=== PATIENT | female | born 1950 | race Caucasian/White ===

== ENCOUNTER 2016-11-14 14:05 | Inpatient (IN) | payer MEDICARE, OTHER ==
[2016-11-14] MEDS ORDERED: SODIUM CHLORIDE 0.9% 1,000 ML IV ONE ×2 (14:40)
[2016-11-14 15:06] LABS: INR 1.1 (<1.1); Prothrombin Time 10.9 sec (9.0-12.0)
[2016-11-14 15:07] LABS: Basophils % (A) 0 %; CH 26.4; CHCM 31.3; Eosinophils % (A) 0 %; HCT 42.7 % (34.0-46.0); HGB 13.3 gm/dL (11.4-16.0); Hypochromasia Slight; Luc # (Auto) 0.08; Luc % (Auto) 1; Lymphocytes # (A) 1.2 k/uL (1.0-4.8); Lymphocytes % (A) 10 %; MCH 26.3 pg (25.0-35.0); MCV 84.7 fL (80.0-100.0); Mean Platelet Volume 7.2; Monocytes # (A) 0.3 k/uL (0-1.0); Monocytes % (A) 3 %; Neutrophils # (A) 9.9 k/uL (1.3-7.7); Neutrophils % (A) 87 %; RBC 5.04 m/uL (3.80-5.40); RDW 14.5 % (11.5-15.5); WBC 11.5 k/uL (3.8-10.6); WBC (Perox) 10.89
[2016-11-14 15:10] LABS: ALT 24 U/L (9-52); AST 16 U/L (14-36); Alkaline Phosphatase 80 U/L (38-126); Anion Gap 22 mmol/L; Blood Urea Nitrogen 34 mg/dL (7-17); Calcium 11.3 mg/dL (8.4-10.2); Carbon Dioxide 22 mmol/L (22-30); Chloride 106 mmol/L (98-107); Glucose 388 mg/dL (74-99); Non-African American GFR(MDRD) >60 (>60 ml/min/1.73 sqM); Potassium 4.6 mmol/L (3.5-5.1); Sodium 150 mmol/L (137-145); Total Bilirubin 0.7 mg/dL (0.2-1.3); Total Protein 8.5 g/dL (6.3-8.2)
[2016-11-14 15:12] LABS: Partial Thromboplastin Time 22.2 sec (22.0-30.0)
--- NOTE | 2016-11-14 15:33 | ED ---
General Adult HPI - General Chief complaint: Altered Mental Status Stated complaint: POSS UTI Time Seen by Provider: 11/14/16 14:40 Source: EMS, RN notes reviewed, old records reviewed Mode of arrival: EMS - History of Present Illness Initial comments: This is a 58-year-old female the ER for evaluation. Patient's brought in from a psychiatric facility, recently hospital for evaluation of altered mental status. Patient's over some long-term multiple sclerosis. Patient herself is unable to give a clear history secondary critical condition, history is obtained from EMS as well as the patient's chart - Related Data Home Medications Medication Instructions Recorded Confirmed Acetaminophen [Tylenol] 650 mg PO Q4H PRN 08/05/14 11/14/16 Amitriptyline HCl 25 mg PO HS@209908/05/14 11/14/16 Docusate Sodium [Dulcolax Stool 200 mg PO DAILY@89908/05/14 11/14/16 Softener] Dronabinol 10 mg PO BID@899,209908/05/14 11/14/16 Ergocalciferol [Vitamin D2 50,000 unit PO SA 08/05/14 11/14/16 (DRISDOL)] Escitalopram [Lexapro] 20 mg PO DAILY@89908/05/14 11/14/16 Insulin Glargine [Lantus] 30 unit SQ DAILY@89908/05/14 11/14/16 Levothyroxine Sodium [Synthroid] 75 mcg PO DAILY@59908/05/14 11/14/16 Lisinopril [Prinivil] 20 mg PO DAILY@89908/05/14 11/14/16 Melatonin 3 mg PO HS PRN 08/05/14 11/14/16 Methenamine Hippurate 1 gm PO BID@0900,209908/05/14 11/14/16 Omeprazole [PriLOSEC] 20 mg PO DAILY@59908/05/14 11/14/16 Polyethylene Glycol 3350 [Miralax] 17 gm PO BID@0900,209908/05/14 11/14/16 Sennosides [Senokot] 17.2 mg PO DAILY@89908/05/14 11/14/16 Artificial Tears-Hypromellose 1 drop BOTH EYES BID PRN 03/25/16 11/14/16 [Artificial Tear Drops] Atorvastatin [Lipitor] 20 mg PO HS@209903/25/16 11/14/16 Bisacodyl 10 mg RECTAL DAILY PRN 03/25/16 11/14/16 Calcium Carbonate [Calcium] 600 mg PO BID@0900,2100 03/25/16 11/14/16 Fenofibrate Nanocrystallized 160 mg PO HS@209903/25/16 11/14/16 [Tricor] Glucagen Hypokit Solution 1 mg IM Q10M PRN 03/25/16 11/14/16 Inzo Barrier Cream 1 applic TOPICAL BID 03/25/16 11/14/16 Magnesium Citrate [Citrate of 300 ml PO Q72H PRN 03/25/16 11/14/16 Magnesia] Naloxegol Oxalate [Movantik] 25 mg PO HS@209903/25/16 11/14/16 Antifungal Powder 1 applic TOPICAL DAILY 11/14/16 11/14/16 Insulin Aspart [NovoLOG Flexpen] See Protocol SQ ACHS 11/14/16 11/14/16 amLODIPine [Norvasc] 5 mg PO DAILY@0900 11/14/16 11/14/16 Previous Rx's Medication Instructions Recorded Diazepam [Valium] 5 mg PO TID PRN #21 tab 03/31/16 fentaNYL 100MCG/HR PATCH 1 patch TRANSDERM Q72H #2 patch 03/31/16 [Duragesic 100MCG/HR] traMADol HCL [Ultram ER] 300 mg PO DAILY@0600 #7 tab.er.24h 03/31/16 Allergies Allergy/AdvReac Type Severity Reaction Status Date / Time No Known Allergies Allergy Verified 11/14/16 14:39 Review of Systems ROS Statement: Those systems with pertinent positive or pertinent negative responses have been documented in the HPI. ROS Other: All systems not noted in ROS Statement are negative. Past Medical History Past Medical History: COPD, CVA/TIA, Diabetes Mellitus, Hypertension, Memory Impairment Additional Past Medical History / Comment(s): UTI, multiple sclerosis, chronic constipation, abdominal distention History of Any Multi-Drug Resistant Organisms: ESBL Date of last positivie culture/infection: 03/25/16 MDRO Source:: Urine AND BLOOD-E.coli ESBL Past Surgical History: Adenoidectomy, Tonsillectomy Additional Past Surgical History / Comment(s): right leg ORIF, multiple scopes Past Psychological History: No Psychological Hx Reported Additional Psychological History / Comment(s): resident ECF, hx of ESBL Smoking Status: Former smoker Past Alcohol Use History: None Reported Past Drug Use History: None Reported - Past Family History Mother History Unknown: Yes Father History Unknown: Yes General Exam Limitations: altered mental status General appearance: alert, in distress Head exam: Present: atraumatic, normocephalic, normal inspection Eye exam: Present: normal appearance, PERRL, EOMI. Absent: scleral icterus, conjunctival injection, periorbital swelling ENT exam: Present: normal exam, mucous membranes moist Neck exam: Present: normal inspection. Absent: tenderness, meningismus, lymphadenopathy Respiratory exam: Present: normal lung sounds bilaterally. Absent: respiratory distress, wheezes, rales, rhonchi, stridor Cardiovascular Exam: Present: normal rhythm, tachycardia, normal heart sounds. Absent: systolic murmur, diastolic murmur, rubs, gallop, clicks GI/Abdominal exam: Present: soft, normal bowel sounds. Absent: distended, tenderness, guarding, rebound, rigid Extremities exam: Present: normal inspection, full ROM, normal capillary refill. Absent: tenderness, pedal edema, joint swelling, calf tenderness Back exam: Present: normal inspection Neurological exam: Present: alert, oriented X3, CN II-XII intact Psychiatric exam: Present: normal affect, normal mood Skin exam: Present: warm, dry, intact, normal color. Absent: rash Course Vital Signs 11/14/16 14:11 Temperature 98.6 F Pulse Rate 130 H Respiratory 18 Rate Blood Pressure 192/89 O2 Sat by Pulse 96 Oximetry - Reevaluation(s) Reevaluation #1: 11/14/16 16:42 She remains clinically same, and still unable to answer questions, persistently tachycardic EKG Findings - EKG Comments: EKG Findings:: EKG shows sinus tachycardia rate 127, MI 126, QRS I4, QTC 479 Medical Decision Making - Medical Decision Making 66 female the ER for evaluation of severe weakness. Patient unable to give history, this is per staff, this is found to have non-ST elevated MT, severe tachycardia. - Lab Data Result diagrams: 11/14/16 14:20 11/14/16 14:20 Lab Results 11/14/16 11/14/16 11/14/16 Range/Units 14:20 14:20 14:20 WBC 11.5 H (3.8-10.6) k/uL RBC 5.04 (3.80-5.40) m/uL Hgb 13.3 (11.4-16.0) gm/dL Hct 42.7 (34.0-46.0) % MCV 84.7 (80.0-100.0) fL MCH 26.3 (25.0-35.0) pg MCHC 31.0 (31.0-37.0) g/dL RDW 14.5 (11.5-15.5) % Plt Count 455 H (150-450) k/uL Neutrophils % 87 % Lymphocytes % 10 % Monocytes % 3 % Eosinophils % 0 % Basophils % 0 % Neutrophils # 9.9 H (1.3-7.7) k/uL Lymphocytes # 1.2 (1.0-4.8) k/uL Monocytes # 0.3 (0-1.0) k/uL Eosinophils # 0.0 (0-0.7) k/uL Basophils # 0.0 (0-0.2) k/uL Hypochromasia Slight PT (9.0-12.0) sec INR (<1.1) APTT (22.0-30.0) sec Sodium 150 H (137-145) mmol/L Potassium 4.6 (3.5-5.1) mmol/L Chloride 106 (98-107) mmol/L Carbon Dioxide 22 (22-30) mmol/L Anion Gap 22 mmol/L BUN 34 H (7-17) mg/dL Creatinine 0.90 (0.52-1.04) mg/dL Est GFR (MDRD) Af Amer >60 (>60 ml/min/1.73 sqM) Est GFR (MDRD) Non-Af >60 (>60 ml/min/1.73 sqM) Glucose 388 H (74-99) mg/dL Calcium 11.3 H (8.4-10.2) mg/dL Total Bilirubin 0.7 (0.2-1.3) mg/dL AST 16 (14-36) U/L ALT 24 (9-52) U/L Alkaline Phosphatase 80 (38-126) U/L Ammonia (<30) umol/L Total Creatine Kinase 38 (30-135) U/L CK-MB (CK-2) 2.7 H* (0.0-2.4) ng/mL CK-MB (CK-2) Rel Index 7.1 Troponin I 0.305 H* (0.000-0.034) ng/mL Total Protein 8.5 H (6.3-8.2) g/dL Albumin 4.8 (3.5-5.0) g/dL 11/14/16 11/14/16 Range/Units 14:20 14:20 WBC (3.8-10.6) k/uL RBC (3.80-5.40) m/uL Hgb (11.4-16.0) gm/dL Hct (34.0-46.0) % MCV (80.0-100.0) fL MCH (25.0-35.0) pg MCHC (31.0-37.0) g/dL RDW (11.5-15.5) % Plt Count (150-450) k/uL Neutrophils % % Lymphocytes % % Monocytes % % Eosinophils % % Basophils % % Neutrophils # (1.3-7.7) k/uL Lymphocytes # (1.0-4.8) k/uL Monocytes # (0-1.0) k/uL Eosinophils # (0-0.7) k/uL Basophils # (0-0.2) k/uL Hypochromasia PT 10.9 (9.0-12.0) sec INR 1.1 (<1.1) APTT 22.2 (22.0-30.0) sec Sodium (137-145) mmol/L Potassium (3.5-5.1) mmol/L Chloride (98-107) mmol/L Carbon Dioxide (22-30) mmol/L Anion Gap mmol/L BUN (7-17) mg/dL Creatinine (0.52-1.04) mg/dL Est GFR (MDRD) Af Amer (>60 ml/min/1.73 sqM) Est GFR (MDRD) Non-Af (>60 ml/min/1.73 sqM) Glucose (74-99) mg/dL Calcium (8.4-10.2) mg/dL Total Bilirubin (0.2-1.3) mg/dL AST (14-36) U/L ALT (9-52) U/L Alkaline Phosphatase (38-126) U/L Ammonia <9 (<30) umol/L Total Creatine Kinase (30-135) U/L CK-MB (CK-2) (0.0-2.4) ng/mL CK-MB (CK-2) Rel Index Troponin I (0.000-0.034) ng/mL Total Protein (6.3-8.2) g/dL Albumin (3.5-5.0) g/dL - Radiology Data Radiology results: report reviewed (Chest x-ray is negative for acute disease), image reviewed Critical Care Time Critical Care Time: Yes Total Critical Care Time: 31 Disposition Clinical Impression: Altered mental status, Multiple sclerosis, primary chronic progressive, NSTEMI (non-ST elevated myocardial infarction) Disposition: ADMITTED IP TO THIS [facility] Condition: Serious Referrals: Luis Munoz MD [Primary Care Provider] - 1-2 days
[2016-11-14 16:08] LABS: Creatine Kinase MB 2.7 ng/mL (0.0-2.4); Troponin I 0.305 ng/mL (0.000-0.034)
[2016-11-14] MEDS ORDERED: SODIUM CHLORIDE 0.9% 1,000 ML IV STA (16:31)
[2016-11-14] MEDS ORDERED: SODIUM CHLORIDE 0.9% 500 ML IV STA (16:31)
[2016-11-14] MEDS ORDERED: HEPARIN SODIUM,PORCINE 5,000 UNIT/ML 1 ML VIAL IV PRN (16:38)
[2016-11-14] MEDS ORDERED: NITROGLYCERIN SL TABS 0.4 MG TAB SUBLINGUAL PRN (16:38)
[2016-11-14] MEDS ORDERED: MORPHINE SULFATE 4 MG/ML SYRINGE IV PRN (16:38)
[2016-11-14] MEDS ORDERED: ASPIRIN 81 MG CHEW PO STA (16:38)
[2016-11-14] MEDS ORDERED: HEPARIN SODIUM,PORCINE 5,000 UNIT/ML 1 ML VIAL IV ONE (16:38)
[2016-11-14] MEDS ORDERED: LABETALOL 5 MG/ML VIAL MDV IVP STA (16:42)
--- NOTE | 2016-11-14 16:46 | XR ---
EXAMINATION TYPE: XR chest 1V portable DATE OF EXAM: 11/14/2016 4:40 PM COMPARISON: 03/28/2016 HISTORY: Altered mental status TECHNIQUE: Single frontal view of the chest is obtained. FINDINGS: There is no heart failure nor confluent pneumonic infiltrate. There are no hilar masses. C ostophrenic angles are clear. There are chest leads. Bony thorax is intact. IMPRESSION: No active cardiopulmonary disease. There is clearing of some atelectasis in both lungs c ompared to old exam.
[2016-11-14] MEDS ORDERED: RX INFO: IV CONTRAST WAS GIVEN 1 EACH MISC MISCELLANE PRN (16:50)
[2016-11-14] MEDS: HEPARIN SODIUM,PORCINE/D5W PMX 25,000 UNIT in DEXTROSE/WATER 1 500ML.BAG IV SCH (16:53)
[2016-11-14 17:31] LABS: Appearance,Urine Cloudy (Clear); Bacteria,Urine Rare /hpf; Bilirubin,Urine Negative (Negative); Glucose,Urine (UA) 4+ (Negative); Leukocyte Esterase,Urine Large (Negative); Mucus,Urine Rare /hpf; Nitrite,Urine Negative (Negative); PH, Urine 6.5 (5.0-8.0); Particle Count 16977; Protein,Urine 2+ (Negative); RBC,Urine 95 /hpf (0-5); Specific Gravity,Urine 1.017 (1.001-1.035); UA Billing (MACRO vs. MICRO) MICRO; Urobilinogen,Urine <2.0 mg/dL (<2.0); WBC,Urine 84 /hpf (0-5)
[2016-11-14 17:35] LABS: Ketones,Urine 2+ (Negative)
--- NOTE | 2016-11-14 18:27 | CT ---
EXAMINATION TYPE: CT angio chest DATE OF EXAM: 11/14/2016 6:14 PM COMPARISON: NONE HISTORY: Patient poor historian. Patient is dehydrated per family and shows increased signs of alter ed mental status. CT DLP: 591 mGycm Automated exposure control for dose reduction was used. CONTRAST: CTA scan of the thorax is performed with IV Contrast, patient injected with 100 mL of Omnipaque 350, pulmonary embolism protocol. There are 3-D post processed images.. FINDINGS: There is patchy atelectasis in both mid and lower lung [place] and worse on the right side. There is s light elevated right diaphragm. There is no pleural effusion. There is no evidence of thoracic aortic aneurysm or dissection. I see no filling defects in the pulmonary arteries. There is no mediastinal adenopathy. There are no hilar masses. There is no pericardial effusion. There is some thoracic kypho tic deformity. There is no evidence of a pulmonary mass. IMPRESSION: NO EVIDENCE OF PULMONARY EMBOLISM. THERE IS MILD BILATERAL PATCHY ATELECTASIS.
[2016-11-14 20:28] LABS: Glucose,Whole Blood 137 mg/dL (75-99)
[2016-11-14 21:42] LABS: Creatine Kinase MB 2.9 ng/mL (0.0-2.4); Troponin I 0.369 ng/mL (0.000-0.034)
[2016-11-14] MEDS: SODIUM CHLORIDE 0.9% 1,000 ML IV SCH (23:16)
[2016-11-14] MEDS: METOPROLOL TARTRATE 50 MG TAB PO SCH (23:41)
[2016-11-15 02:49] LABS: Mean Platelet Volume 6.7
[2016-11-15 03:03] LABS: Cholesterol 126 mg/dL (<200); HDL Cholesterol 51 mg/dL (40-60); Triglycerides 205 mg/dL (<150)
[2016-11-15 03:36] LABS: Creatine Kinase MB 2.9 ng/mL (0.0-2.4); Troponin I 0.244 ng/mL (0.000-0.034)
[2016-11-15] MEDS: SODIUM CHLORIDE 0.9% 1,000 ML IV SCH (06:54)
--- NOTE | 2016-11-15 08:58 | P.CRDCN ---
History of Present Illness Consult date: 11/15/16 History of present illness: This is a 66-year-old female who apparently was brought from a extended care facility because of altered mental status. She does have history of dementia and some some Issues. Also had a history of some sepsis in the past. Apparently she is diagnosed to have possible UTI. EKG showed sinus tachycardia on admission with nonspecific ST-T changes. Her cardiac enzymes showed a mildly elevated troponin but the pattern is not consistent with acute coronary injury. Patient total CPK was 54. The adductor the time of my examination patient is awake but unable to give any meaningful history. She doesn't seem to be in acute distress. She was claiming that she is feeling okay. Computed tomography scan of the chest did not reveal any pulmonary emboli Review of Systems As per the chart Past Medical History Past Medical History: COPD, CVA/TIA, Diabetes Mellitus, Hypertension, Memory Impairment Additional Past Medical History / Comment(s): UTI, multiple sclerosis, chronic constipation, abdominal distention History of Any Multi-Drug Resistant Organisms: ESBL Date of last positivie culture/infection: 03/25/16 MDRO Source:: Urine AND BLOOD-E.coli ESBL Past Surgical History: Adenoidectomy, Tonsillectomy Additional Past Surgical History / Comment(s): right leg ORIF, multiple scopes Past Psychological History: No Psychological Hx Reported Additional Psychological History / Comment(s): resident ECF, hx of ESBL Smoking Status: Former smoker Past Alcohol Use History: None Reported Past Drug Use History: None Reported - Past Family History Mother History Unknown: Yes Father History Unknown: Yes Medications and Allergies Home Medications Medication Instructions Recorded Confirmed Type Acetaminophen [Tylenol] 650 mg PO Q4H PRN 08/05/14 11/14/16 History Amitriptyline HCl 25 mg PO HS@209908/05/14 11/14/16 History Docusate Sodium [Dulcolax Stool 200 mg PO DAILY@0900 08/05/14 11/14/16 History Softener] Dronabinol 10 mg PO BID@0900,209908/05/14 11/14/16 History Ergocalciferol [Vitamin D2 50,000 unit PO SA 08/05/14 11/14/16 History (DRISDOL)] Escitalopram [Lexapro] 20 mg PO DAILY@0900 08/05/14 11/14/16 History Insulin Glargine [Lantus] 30 unit SQ DAILY@89908/05/14 11/14/16 History Levothyroxine Sodium [Synthroid] 75 mcg PO DAILY@0608/05/14 11/14/16 History Lisinopril [Prinivil] 20 mg PO DAILY@0900 08/05/14 11/14/16 History Melatonin 3 mg PO HS PRN 08/05/14 11/14/16 History Methenamine Hippurate 1 gm PO BID@0900,209908/05/14 11/14/16 History Omeprazole [PriLOSEC] 20 mg PO DAILY@59908/05/14 11/14/16 History Polyethylene Glycol 3350 [Miralax] 17 gm PO BID@0900,209908/05/14 11/14/16 History Sennosides [Senokot] 17.2 mg PO DAILY@0908/05/14 11/14/16 History Artificial Tears-Hypromellose 1 drop BOTH EYES BID PRN 03/25/16 11/14/16 History [Artificial Tear Drops] Atorvastatin [Lipitor] 20 mg PO HS@209903/25/16 11/14/16 History Bisacodyl 10 mg RECTAL DAILY PRN 03/25/16 11/14/16 History Calcium Carbonate [Calcium] 600 mg PO BID@0900,209903/25/16 11/14/16 History Fenofibrate Nanocrystallized 160 mg PO HS@209903/25/16 11/14/16 History [Tricor] Glucagen Hypokit Solution 1 mg IM Q10M PRN 03/25/16 11/14/16 History Inzo Barrier Cream 1 applic TOPICAL BID 03/25/16 11/14/16 History Magnesium Citrate [Citrate of 300 ml PO Q72H PRN 03/25/16 11/14/16 History Magnesia] Naloxegol Oxalate [Movantik] 25 mg PO HS@209903/25/16 11/14/16 History Antifungal Powder 1 applic TOPICAL DAILY 11/14/16 11/14/16 History Insulin Aspart [NovoLOG Flexpen] See Protocol SQ ACHS 11/14/16 11/14/16 History amLODIPine [Norvasc] 5 mg PO DAILY@0911/14/16 11/14/16 History Allergies Allergy/AdvReac Type Severity Reaction Status Date / Time No Known Allergies Allergy Verified 11/14/16 14:39 Physical Exam Vitals: Vital Signs Temp Pulse Resp BP Pulse Ox 11/15/16 06:47 73 16 176/92 98 11/15/16 04:28 69 16 177/82 97 11/15/16 01:38 96 16 169/75 97 11/15/16 00:20 98 16 165/79 97 11/14/16 23:10 92 16 180/86 97 11/14/16 19:36 89 16 160/73 97 11/14/16 19:12 95 18 149/81 96 11/14/16 18:45 106 H 18 179/80 96 11/14/16 17:04 99.9 F H 126 H 16 185/84 99 11/14/16 17:03 128 H 16 172/85 96 Intake and Output 11/14/16 11/15/16 11/15/16 22:59 06:59 14:59 Intake Total 242.87 Balance 242.87 Intake: Intake, IV Titration 242.87 Amount Heparin Sodium,Porcine/ 242.87 D5w Pmx 25,000 unit In Dextrose/Water 1 500ml. bag @ 12 UNITS/KG/HR 17. 41 mls/hr IV .Q24H [facility] Rx #:[id number] GENERAL EXAM: Patient is awake, but this seemed to be disoriented. In no acute distress HEENT: Normocephalic. Normal reaction of pupils, equal size, normal range of extraocular motion. No erythema or exudates in the throat. NECK: No masses, no nuchal rigidity. CHEST: No chest wall deformity. LUNGS: Equal air entry with no crackles or wheeze. HEART: S1 and S2 normal with no audible mumurs or gallops. Regular rhythm, femorals equal on both sides.. ABDOMEN: No hepatosplenomegaly, normal bowel sounds, no guarding or rigidity. SKIN: No rashes CENTRAL NERVOUS SYSTEM: No focal deficits. EXTREMITIES: No cyanosis, clubbing or edema. Results 11/15/16 02:40 11/14/16 14:20 Cardiac Enzymes 11/14/16 11/15/16 Range/Units 20:50 02:40 CK-MB (CK-2) 2.9 H* 2.9 H* (0.0-2.4) ng/mL Troponin I 0.369 H* 0.244 H* (0.000-0.034) ng/mL Coagulation 11/14/16 11/15/16 Range/Units 22:45 02:40 APTT 60.6 H 91.9 H (22.0-30.0) sec Lipids 11/15/16 Range/Units 02:40 Triglycerides 205 H (<150) mg/dL Cholesterol 126 (<200) mg/dL HDL Cholesterol 51 (40-60) mg/dL CBC 11/15/16 Range/Units 02:40 Plt Count 314 (150-450) k/uL Current Medications Generic Name Dose Route Start Last Admin Trade Name Freq PRN Reason Stop Dose Admin Aspirin 325 mg 11/15/16 09:00 Aspirin PO DAILY [facility] Atorvastatin Calcium 80 mg 11/15/16 09:00 Lipitor PO DAILY [facility] Heparin Sodium (Porcine) 0 unit 11/14/16 16:38 Heparin IV Q6HR PRN Low PTT Protocol Heparin Sodium/Dextrose 25,000 500 mls @ 17.41 mls/hr 11/14/16 16:45 06:50 unit/ IV Solution IV 10 units/kg/hr .Q24H [facility] 14.51 mls/hr Protocol Titration 12 UNITS/KG/HR Sodium Chloride 1,000 mls @ 100 mls/hr 11/14/16 16:45 11/15/16 06:54 Saline 0.9% IV 100 mls/hr .Q10H [facility] Administration Metoprolol Tartrate 50 mg 11/14/16 21:00 11/14/16 23:41 Lopressor PO 50 mg BID [facility] Administration Miscellaneous Information 1 each 11/14/16 16:50 Rx Info: Iv Contrast Was Given MISCELLANE 11/16/16 16:50 DAILY PRN Per Protocol Morphine Sulfate 4 mg 11/14/16 16:38 11/14/16 23:40 Morphine Sulfate (Inj) IV 4 mg Q4HR PRN Administration Chest Pain Nitroglycerin 0.4 mg 11/14/16 16:38 Nitrostat SUBLINGUAL Q5M PRN Chest Pain Intake and Output 11/14/16 11/15/16 11/15/16 22:59 06:59 14:59 Intake Total 242.87 Balance 242.87 Intake: Intake, IV Titration 242.87 Amount Heparin Sodium,Porcine/ 242.87 D5w Pmx 25,000 unit In Dextrose/Water 1 500ml. bag @ 12 UNITS/KG/HR 17. 41 mls/hr IV .Q24H [facility] Rx #:[id number] 11/15/16 02:40 EKG Interpretations (text) Sinus tachycardia with nonspecific ST-T abnormalities Assessment and Plan (1) Elevated troponin Status: Acute (2) Altered mental status Status: Acute (3) Urinary tract infection Status: Acute Plan: Patient seemed to be stable at this time. The mom troponins are mildly elevated , this pattern is not consistent with acute coronary syndrome. Underlying ischemic heart disease cannot be ruled out. I will obtain an echocardiogram to assess LV function. If the LV looks normal and patient doesn't have any symptoms, I would recommend conservative management from cardiac standpoint. I don't think patient is a candidate for invasive workup. Thank you again for letting us participate in the care of this patient. We'll may add small dose of beta marylou and aspirin
[2016-11-15] MEDS: ATORVASTATIN 80 MG TAB PO SCH ×3 (10:16→11:06)
[2016-11-15] MEDS: ASPIRIN 325 MG TAB PO SCH ×3 (10:16→11:06)
[2016-11-15] MEDS: METOPROLOL TARTRATE 50 MG TAB PO SCH ×3 (10:16→11:06)
[2016-11-15 11:10] LABS: Glucose,Whole Blood 98 mg/dL (75-99)
[2016-11-15] MEDS: NITROGLYCERIN OINT 1 INCH/GM PACKET TOPICAL SCH ×2 (11:13→17:24)
[2016-11-15 11:28] LABS: Basophils % (A) 0 %; CH 26.2; CHCM 29.7; Eosinophils # (A) 0.1 k/uL (0-0.7); Eosinophils % (A) 1 %; HCT 34.1 % (34.0-46.0); HDW 2.47; Hypochromasia Marked; Luc # (Auto) 0.11; Luc % (Auto) 2; Lymphocytes # (A) 1.8 k/uL (1.0-4.8); Lymphocytes % (A) 23 %; MCH 26.2 pg (25.0-35.0); MCHC 29.5 g/dL (31.0-37.0); MCV 88.7 fL (80.0-100.0); Mean Platelet Volume 7.7; Monocytes # (A) 0.5 k/uL (0-1.0); Monocytes % (A) 6 %; Neutrophils # (A) 5.3 k/uL (1.3-7.7); Neutrophils % (A) 68 %; RBC 3.85 m/uL (3.80-5.40); RDW 14.5 % (11.5-15.5); WBC 7.7 k/uL (3.8-10.6); WBC (Perox) 7.58
[2016-11-15 11:29] LABS: HGB 10.1 gm/dL (11.4-16.0)
[2016-11-15 11:39] LABS: ALT 28 U/L (9-52); AST 12 U/L (14-36); Alkaline Phosphatase 51 U/L (38-126); Anion Gap 8 mmol/L; Blood Urea Nitrogen 19 mg/dL (7-17); Calcium 8.2 mg/dL (8.4-10.2); Carbon Dioxide 21 mmol/L (22-30); Glucose 177 mg/dL (74-99); Non-African American GFR(MDRD) >60 (>60 ml/min/1.73 sqM); Potassium 3.2 mmol/L (3.5-5.1); Sodium 149 mmol/L (137-145); Total Bilirubin 0.3 mg/dL (0.2-1.3); Total Protein 6.1 g/dL (6.3-8.2)
[2016-11-15 11:44] LABS: Chloride 120 mmol/L (98-107)
[2016-11-15] MEDS ORDERED: Potassium Replacement Protocol 1 EACH MISC MISCELLANE PRN (12:22)
[2016-11-15] MEDS: INSULIN LISPRO (humaLOG) 300 UNIT/3 ML VIAL SQ SCH ×2 (12:51→17:23)
[2016-11-15] MEDS: DEXTROSE 5%-0.45% NACL 1,000 ML IV SCH (12:51)
[2016-11-15 13:10] VITALS: BMI 25.0
[2016-11-15] MEDS: POTASSIUM CHLORIDE 10 MEQ, LIDOCAINE 2% INJ 10 MG in SODIUM CHLORIDE 0.9% 100 ML IV SCH ×2 (14:41→16:42)
--- NOTE | 2016-11-15 14:46 | P.HPIM ---
History of Present Illness H&P Date: 11/15/16 Chief Complaint: Confusion Regina is a 66-year-old white female well-known to me from [facility] on the [facility]. She has advanced multiple sclerosis and only use of her right hand, otherwise she is a functional quadraplegic. Staff had reported last week that she been getting confused off and on. A urinalysis and chest x-ray was done. The urinalysis was never taken as they were unable to put in a Cabezas catheter. He had not been contacted about her until yesterday, when she was very confused. They had reported to me over the past several days of significantly elevated sugars. This is not out of the norm for Regina. Was a brittle diabetic, and frequently has hypo-and hyperglycemia. She was found to have a UTI. She is here for treatment regarding the confusion. Her only while she is awake and alert, she is confused and unable to answer most questions I ask her today. He does recognize me on entering her room. and asks of my family. Review of Systems ROS unobtainable: due to mental status Past Medical History Past Medical History: Chest Pain / Angina, COPD, CVA/TIA, Diabetes Mellitus, Hypertension, Memory Impairment, Neurologic Disorder (Multiple sclerosis), Thyroid Disorder Additional Past Medical History / Comment(s): Current UTI, on suppression treatment, chronic constipation, abdominal chronic pain. History of Any Multi-Drug Resistant Organisms: ESBL Date of last positivie culture/infection: 03/25/16 MDRO Source:: Urine AND BLOOD-E.coli ESBL Past Surgical History: Adenoidectomy, Tonsillectomy Additional Past Surgical History / Comment(s): right leg ORIF, multiple scopes Past Psychological History: Depression Additional Psychological History / Comment(s): resident [facility], of ESBL Smoking Status: Former smoker Past Alcohol Use History: None Reported Past Drug Use History: None Reported - Past Family History Mother History Unknown: Yes Father History Unknown: Yes Medications and Allergies Home Medications Medication Instructions Recorded Confirmed Type Acetaminophen [Tylenol] 650 mg PO Q4H PRN 08/05/14 11/14/16 History Amitriptyline HCl 25 mg PO HS@2100 08/05/14 11/14/16 History Docusate Sodium [Dulcolax Stool 200 mg PO DAILY@0900 08/05/14 11/14/16 History Softener] Dronabinol 10 mg PO BID@0900,209908/05/14 11/14/16 History Ergocalciferol [Vitamin D2 50,000 unit PO SA 08/05/14 11/14/16 History (DRISDOL)] Escitalopram [Lexapro] 20 mg PO DAILY@0908/05/14 11/14/16 History Insulin Glargine [Lantus] 30 unit SQ DAILY@89908/05/14 11/14/16 History Levothyroxine Sodium [Synthroid] 75 mcg PO DAILY@59908/05/14 11/14/16 History Lisinopril [Prinivil] 20 mg PO DAILY@89908/05/14 11/14/16 History Melatonin 3 mg PO HS PRN 08/05/14 11/14/16 History Methenamine Hippurate 1 gm PO BID@0900,209908/05/14 11/14/16 History Omeprazole [PriLOSEC] 20 mg PO DAILY@59908/05/14 11/14/16 History Polyethylene Glycol 3350 [Miralax] 17 gm PO BID@0900,209908/05/14 11/14/16 History Sennosides [Senokot] 17.2 mg PO DAILY@89908/05/14 11/14/16 History Artificial Tears-Hypromellose 1 drop BOTH EYES BID PRN 03/25/16 11/14/16 History [Artificial Tear Drops] Atorvastatin [Lipitor] 20 mg PO HS@209903/25/16 11/14/16 History Bisacodyl 10 mg RECTAL DAILY PRN 03/25/16 11/14/16 History Calcium Carbonate [Calcium] 600 mg PO BID@0900,209903/25/16 11/14/16 History Fenofibrate Nanocrystallized 160 mg PO HS@209903/25/16 11/14/16 History [Tricor] Glucagen Hypokit Solution 1 mg IM Q10M PRN 03/25/16 11/14/16 History Inzo Barrier Cream 1 applic TOPICAL BID 03/25/16 11/14/16 History Magnesium Citrate [Citrate of 300 ml PO Q72H PRN 03/25/16 11/14/16 History Magnesia] Naloxegol Oxalate [Movantik] 25 mg PO HS@2100 03/25/16 11/14/16 History Antifungal Powder 1 applic TOPICAL DAILY 11/14/16 11/14/16 History Insulin Aspart [NovoLOG Flexpen] See Protocol SQ ACHS 11/14/16 11/14/16 History amLODIPine [Norvasc] 5 mg PO DAILY@0900 11/14/16 11/14/16 History Allergies Allergy/AdvReac Type Severity Reaction Status Date / Time No Known Allergies Allergy Verified 11/14/16 14:39 Physical Exam Vitals: Vital Signs Temp Pulse Pulse Resp BP BP Pulse Ox 11/15/16 11:52 98.6 F 67 16 157/72 100 11/15/16 08:30 99.0 F 74 16 158/70 99 11/15/16 06:47 73 16 176/92 98 11/15/16 04:28 69 16 177/82 97 11/15/16 01:38 96 16 169/75 97 11/15/16 00:20 98 16 165/79 97 11/14/16 23:10 92 16 180/86 97 11/14/16 19:36 89 16 160/73 97 11/14/16 19:12 95 18 149/81 96 11/14/16 18:45 106 H 18 179/80 96 11/14/16 17:44 100.6 F H 56 L 16 126/77 100 11/14/16 17:04 99.9 F H 126 H 16 185/84 99 11/14/16 17:03 128 H 16 172/85 96 Intake and Output 11/14/16 11/15/16 11/15/16 22:59 06:59 14:59 Intake Total 242.87 250 Output Total 1000 Balance 242.87 -750 Intake: Intake, IV Titration 242.87 250 Amount Heparin Sodium,Porcine/ 242.87 D5w Pmx 25,000 unit In Dextrose/Water 1 500ml. bag @ 12 UNITS/KG/HR 17. 41 mls/hr IV .Q24H R[facility] Rx #:[id number] Sodium Chloride 0.9% 1, 250 000 ml @ 100 mls/hr IV . Q10H RIVER Rx#:[id number] Output: Urine 1000 Other: Voiding Method Indwelling Catheter Weight 72.575 kg GENERAL: Fatigued, thin and in no acute distress. HEAD: Atraumatic, normocephalic. EYES: Pupils equal round and reactive to light, extraocular movements intact, sclera anicteric, conjunctiva are normal. ENT:nares patent, oropharynx clear without exudates. Moist mucous membranes. NECK: Normal range of motion, supple without lymphadenopathy or JVD, no thyromegaly LUNGS: Breath sounds clear to auscultation bilaterally and equal. No wheezes rales or rhonchi. HEART: Regular rate and rhythm without murmurs, rubs or gallops.S1S2 Normal ABDOMEN: Soft, , normoactive bowel sounds. No guarding, no rebound. There distended due to chronic fecal retention EXTREMITIES: Atrophy to all with only use of her right upper extremity. NEUROLOGICAL: Cranial nerves II through XII grossly intact. Normal speech, nonambulatory, wheelchair bound PSYCH: Normal mood, normal affect. SKIN: Warm, Dry, normal turgor, no rashes or lesions noted. Results CBC & Chem 7: 11/15/16 10:56 11/15/16 02:40 Labs: Abnormal Lab Results - Last 24 Hours (Table) 11/14/16 11/14/16 11/14/16 Range/Units 16:50 20:27 20:50 Hgb (11.4-16.0) gm/dL MCHC (31.0-37.0) g/dL APTT (22.0-30.0) sec Sodium (137-145) mmol/L Potassium (3.5-5.1) mmol/L Chloride (98-107) mmol/L Carbon Dioxide (22-30) mmol/L BUN (7-17) mg/dL Glucose (74-99) mg/dL POC Glucose (mg/dL) 137 H (75-99) mg/dL Calcium (8.4-10.2) mg/dL AST (14-36) U/L CK-MB (CK-2) 2.9 H* (0.0-2.4) ng/mL Troponin I 0.369 H* (0.000-0.034) ng/mL Total Protein (6.3-8.2) g/dL Albumin (3.5-5.0) g/dL Triglycerides (<150) mg/dL Urine Appearance Cloudy H (Clear) Urine Protein 2+ H (Negative) Urine Glucose (UA) 4+ H (Negative) Urine Ketones 2+ H (Negative) Urine Blood Moderate H (Negative) Ur Leukocyte Esterase Large H (Negative) Urine RBC 95 H (0-5) /hpf Urine WBC 84 H (0-5) /hpf Urine WBC Clumps Few H (None) /hpf Urine Bacteria Rare H (None) /hpf Urine Mucus Rare H (None) /hpf Urine Yeast (Budding) Few H (None) /hpf 11/14/16 11/15/16 11/15/16 Range/Units 22:45 02:40 02:40 Hgb (11.4-16.0) gm/dL MCHC (31.0-37.0) g/dL APTT 60.6 H 91.9 H (22.0-30.0) sec Sodium (137-145) mmol/L Potassium (3.5-5.1) mmol/L Chloride (98-107) mmol/L Carbon Dioxide (22-30) mmol/L BUN (7-17) mg/dL Glucose (74-99) mg/dL POC Glucose (mg/dL) (75-99) mg/dL Calcium (8.4-10.2) mg/dL AST (14-36) U/L CK-MB (CK-2) 2.9 H* (0.0-2.4) ng/mL Troponin I 0.244 H* (0.000-0.034) ng/mL Total Protein (6.3-8.2) g/dL Albumin (3.5-5.0) g/dL Triglycerides (<150) mg/dL Urine Appearance (Clear) Urine Protein (Negative) Urine Glucose (UA) (Negative) Urine Ketones (Negative) Urine Blood (Negative) Ur Leukocyte Esterase (Negative) Urine RBC (0-5) /hpf Urine WBC (0-5) /hpf Urine WBC Clumps (None) /hpf Urine Bacteria (None) /hpf Urine Mucus (None) /hpf Urine Yeast (Budding) (None) /hpf 11/15/16 11/15/16 11/15/16 Range/Units 02:40 02:40 10:56 Hgb 10.1 L D (11.4-16.0) gm/dL MCHC 29.5 L (31.0-37.0) g/dL APTT (22.0-30.0) sec Sodium 149 H (137-145) mmol/L Potassium 3.2 L (3.5-5.1) mmol/L Chloride 120 H* (98-107) mmol/L Carbon Dioxide 21 L (22-30) mmol/L BUN 19 H (7-17) mg/dL Glucose 177 H (74-99) mg/dL POC Glucose (mg/dL) (75-99) mg/dL Calcium 8.2 L (8.4-10.2) mg/dL AST 12 L (14-36) U/L CK-MB (CK-2) (0.0-2.4) ng/mL Troponin I (0.000-0.034) ng/mL Total Protein 6.1 L (6.3-8.2) g/dL Albumin 3.1 L (3.5-5.0) g/dL Triglycerides 205 H (<150) mg/dL Urine Appearance (Clear) Urine Protein (Negative) Urine Glucose (UA) (Negative) Urine Ketones (Negative) Urine Blood (Negative) Ur Leukocyte Esterase (Negative) Urine RBC (0-5) /hpf Urine WBC (0-5) /hpf Urine WBC Clumps (None) /hpf Urine Bacteria (None) /hpf Urine Mucus (None) /hpf Urine Yeast (Budding) (None) /hpf 11/15/16 Range/Units 13:24 Hgb (11.4-16.0) gm/dL MCHC (31.0-37.0) g/dL APTT 36.7 H (22.0-30.0) sec Sodium (137-145) mmol/L Potassium (3.5-5.1) mmol/L Chloride (98-107) mmol/L Carbon Dioxide (22-30) mmol/L BUN (7-17) mg/dL Glucose (74-99) mg/dL POC Glucose (mg/dL) (75-99) mg/dL Calcium (8.4-10.2) mg/dL AST (14-36) U/L CK-MB (CK-2) (0.0-2.4) ng/mL Troponin I (0.000-0.034) ng/mL Total Protein (6.3-8.2) g/dL Albumin (3.5-5.0) g/dL Triglycerides (<150) mg/dL Urine Appearance (Clear) Urine Protein (Negative) Urine Glucose (UA) (Negative) Urine Ketones (Negative) Urine Blood (Negative) Ur Leukocyte Esterase (Negative) Urine RBC (0-5) /hpf Urine WBC (0-5) /hpf Urine WBC Clumps (None) /hpf Urine Bacteria (None) /hpf Urine Mucus (None) /hpf Urine Yeast (Budding) (None) /hpf Microbiology - Last 24 Hours (Table) 11/14/16 16:50 Urine Culture - Preliminary Urine,Catheterized Chest x-ray: report reviewed CT scan - chest: report reviewed Thrombosis Risk Factor Assmnt - Choose All That Apply Any of the Below Risk Factors Present?: No Each Risk Factor Represents 2 Points: Age 61-74 years Thrombosis Risk Factor Assessment Total Risk Factor Score: 2 Thrombosis Risk Factor Assessment Level: Low Risk Assessment and Plan Plan: Metabolic encephalopathy due to UTI and multiple sclerosis: She is receiving IV fluids. I will add Rocephin to her regimen. Sepsis: She had a leukocytosis, fever and confusion. We'll monitor. We'll consult neurology Abnormal troponins: Cardiology consultation, with the recommendations. Hypernatremia: Due to dehydration, will gently hydrate her with D5 half-normal saline. Hypokalemia: We'll put on potassium place protocol. Chronic recurrent UTI, on suppression therapy well and I'll restart her methenamine. Chronic low back pain: We'll decrease her pain medications and hold her Marinol this time. Moderate malnutrition: I'll hold her Marinol this time due to the side effects mentation issues. sHe will be reevaluated in the next 24 hours.
[2016-11-15 16:56] LABS: Glucose,Whole Blood 266 mg/dL (75-99)
[2016-11-15] MEDS: HEPARIN SODIUM,PORCINE/D5W PMX 25,000 UNIT in DEXTROSE/WATER 1 500ML.BAG IV SCH (19:35)
[2016-11-15] MEDS ORDERED: MELATONIN 3 MG TABLET ONE (21:00)
[2016-11-15] MEDS ORDERED: METOPROLOL TARTRATE 50 MG TAB ONE (21:00)
[2016-11-15 23:05] LABS: Glucose,Whole Blood 192 mg/dL (75-99)
[2016-11-16] MEDS: INSULIN LISPRO (humaLOG) 300 UNIT/3 ML VIAL SQ SCH ×5 (00:30→21:21)
[2016-11-16] MEDS: METOPROLOL TARTRATE 50 MG TAB PO SCH ×3 (00:30→21:05)
[2016-11-16] MEDS ORDERED: NITROGLYCERIN OINT 1 INCH/GM PACKET TOPICAL ONE (02:00)
[2016-11-16] MEDS ORDERED: POTASSIUM CHLORIDE ER 20 MEQ TAB.ER PO ONE (02:00)
[2016-11-16] MEDS: NITROGLYCERIN OINT 1 INCH/GM PACKET TOPICAL SCH ×4 (02:19→17:40)
[2016-11-16] MEDS: DEXTROSE 5%-0.45% NACL 1,000 ML IV SCH ×2 (02:19→17:42)
[2016-11-16] MEDS: POTASSIUM CHLORIDE ER 20 MEQ TAB.ER PO SCH ×2 (02:30→03:23)
[2016-11-16 06:13] LABS: Glucose,Whole Blood 250 mg/dL (75-99)
[2016-11-16 06:29] LABS: Basophils % (A) 1 %; CH 26.1; CHCM 30.6; Eosinophils # (A) 0.1 k/uL (0-0.7); Eosinophils % (A) 3 %; HCT 31.7 % (34.0-46.0); HDW 2.48; HGB 9.8 gm/dL (11.4-16.0); Hypochromasia Moderate; Luc # (Auto) 0.06; Luc % (Auto) 2; Lymphocytes # (A) 1.6 k/uL (1.0-4.8); Lymphocytes % (A) 39 %; MCH 26.4 pg (25.0-35.0); MCHC 30.9 g/dL (31.0-37.0); MCV 85.6 fL (80.0-100.0); Monocytes # (A) 0.2 k/uL (0-1.0); Monocytes % (A) 4 %; Neutrophils % (A) 52 %; RDW 14.4 % (11.5-15.5); WBC 3.9 k/uL (3.8-10.6)
[2016-11-16 06:48] LABS: Anion Gap 9 mmol/L; Blood Urea Nitrogen 12 mg/dL (7-17); Calcium 7.9 mg/dL (8.4-10.2); Carbon Dioxide 22 mmol/L (22-30); Chloride 108 mmol/L (98-107); Glucose 240 mg/dL (74-99); Non-African American GFR(MDRD) >60 (>60 ml/min/1.73 sqM); Potassium 3.5 mmol/L (3.5-5.1); Sodium 139 mmol/L (137-145)
[2016-11-16] MEDS: ASPIRIN 325 MG TAB PO SCH (09:57)
[2016-11-16] MEDS: ATORVASTATIN 80 MG TAB PO SCH (09:57)
[2016-11-16 11:47] LABS: Glucose,Whole Blood 444 mg/dL (75-99)
[2016-11-16 11:47] LABS: Glucose,Whole Blood 411 mg/dL (75-99)
[2016-11-16 11:52] LABS: Hemoglobin A1C 8.9 % (4.2-6.1)
--- NOTE | 2016-11-16 12:24 | P.PN ---
Subjective Regina is a 66-year-old white female well-known to me from [facility] on the [facility]. She has advanced multiple sclerosis and only use of her right hand, otherwise she is a functional quadraplegic. Staff had reported last week that she been getting confused off and on. A urinalysis and chest x-ray was done. The urinalysis was never taken as they were unable to put in a Cabezas catheter. He had not been contacted about her until yesterday, when she was very confused. They had reported to me over the past several days of significantly elevated sugars. This is not out of the norm for Regina. Was a brittle diabetic, and frequently has hypo-and hyperglycemia. She was found to have a UTI. She is here for treatment regarding the confusion. 11/15 She was found asleep, but is easily arousable. she was confused and unable to answer most questions. She does recognize me on entering her room. and asks of my family. 11/16, she is more alert. He was found awake when entering the room. Was oriented 2 today plus the holiday, but unsure of the exact day and date. This is even an improvement from her normal jail mental status. She denies any significant complaints at this time. She denies any chest pains, pressures, shortness of breath, nausea, vomiting, blood in her stool, or black stool. She has a Cabezas catheter to gravity Objective - Vital Signs Vital signs: Vital Signs Temp 97.1 F L 11/16/16 04:00 Pulse 82 11/16/16 08:00 Resp 16 11/16/16 08:00 BP 134/69 11/16/16 08:00 Pulse Ox 98 11/16/16 08:00 Intake & Output 11/15/16 11/16/16 11/16/16 18:59 06:59 18:59 Intake Total 463.904 900 Output Total 1000 800 Balance -536.096 -800 900 Weight 72.575 kg 67.5 kg 67.5 kg Intake: Intake, IV Titration 463.904 900 Amount Dextrose 5%-0.45% NaCl 1, 900 000 ml @ 75 mls/hr IV . [id number] RIVER Rx#:[id number] Heparin Sodium,Porcine/ 113.904 D5w Pmx 25,000 unit In Dextrose/Water 1 500ml. bag @ 12 UNITS/KG/HR 17. 41 mls/hr IV .Q24H RIVER Rx #:[id number] Potassium Chloride 10 meq 100 Lidocaine 2% Inj 10 mg In Sodium Chloride 0.9% 100 ml @ 100 mls/hr IV Q1HR RIVER Rx#:[id number] Sodium Chloride 0.9% 1, 250 000 ml @ 100 mls/hr IV . Q10H RIVER Rx#:[id number] Output: Urine 1000 800 Other: Voiding Method Indwelling Catheter Indwelling Catheter Indwelling Catheter # Bowel Movements 1 - Exam GENERAL: Awake alert, thin and in no acute distress. HEAD: Atraumatic, normocephalic. NECK: Normal range of motion, supple without lymphadenopathy or JVD, no thyromegaly LUNGS: Breath sounds clear to auscultation bilaterally and equal. No wheezes rales or rhonchi. HEART: Regular rate and rhythm without murmurs, rubs or gallops.S1S2 Normal ABDOMEN: Soft, , normoactive bowel sounds. No guarding, no rebound. There distended due to chronic fecal retention area and there is a Cabezas in place EXTREMITIES: Atrophy to all with only use of her right upper extremity. NEUROLOGICAL: Cranial nerves II through XII grossly intact. Normal speech, nonambulatory, wheelchair bound due to multiple sclerosis leaving her functionally quadriplegic, AA02.5 PSYCH: Normal mood, normal affect. SKIN: Warm, Dry, normal turgor, no rashes or lesions noted. - Labs CBC & Chem 7: 11/16/16 06:05 11/16/16 06:05 Labs: Abnormal Lab Results - Last 24 Hours (Table) 11/15/16 11/15/16 11/15/16 Range/Units 13:24 13:24 16:27 RBC (3.80-5.40) m/uL Hgb (11.4-16.0) gm/dL Hct (34.0-46.0) % MCHC (31.0-37.0) g/dL APTT 36.7 H (22.0-30.0) sec Potassium (3.5-5.1) mmol/L Chloride (98-107) mmol/L Glucose (74-99) mg/dL POC Glucose (mg/dL) 266 H (75-99) mg/dL Hemoglobin A1c 8.9 H (4.2-6.1) % Calcium (8.4-10.2) mg/dL 11/15/16 11/15/16 11/16/16 Range/Units 21:10 21:12 00:24 RBC (3.80-5.40) m/uL Hgb (11.4-16.0) gm/dL Hct (34.0-46.0) % MCHC (31.0-37.0) g/dL APTT 48.6 H (22.0-30.0) sec Potassium 3.1 L (3.5-5.1) mmol/L Chloride (98-107) mmol/L Glucose (74-99) mg/dL POC Glucose (mg/dL) 192 H (75-99) mg/dL Hemoglobin A1c (4.2-6.1) % Calcium (8.4-10.2) mg/dL 11/16/16 11/16/16 11/16/16 Range/Units 06:05 06:05 06:05 RBC 3.70 L (3.80-5.40) m/uL Hgb 9.8 L (11.4-16.0) gm/dL Hct 31.7 L (34.0-46.0) % MCHC 30.9 L (31.0-37.0) g/dL APTT 55.9 H (22.0-30.0) sec Potassium (3.5-5.1) mmol/L Chloride 108 H (98-107) mmol/L Glucose 240 H (74-99) mg/dL POC Glucose (mg/dL) (75-99) mg/dL Hemoglobin A1c (4.2-6.1) % Calcium 7.9 L (8.4-10.2) mg/dL 11/16/16 11/16/16 11/16/16 Range/Units 06:11 11:37 11:39 RBC (3.80-5.40) m/uL Hgb (11.4-16.0) gm/dL Hct (34.0-46.0) % MCHC (31.0-37.0) g/dL APTT (22.0-30.0) sec Potassium (3.5-5.1) mmol/L Chloride (98-107) mmol/L Glucose (74-99) mg/dL POC Glucose (mg/dL) 250 H 444 H 411 H (75-99) mg/dL Hemoglobin A1c (4.2-6.1) % Calcium (8.4-10.2) mg/dL Microbiology - Last 24 Hours (Table) 11/14/16 16:50 Urine Culture - Preliminary Urine,Catheterized Gram Neg Bacilli Assessment and Plan Plan: Metabolic encephalopathy due to UTI and multiple sclerosis: She is receiving IV fluids. Continue antibiotics of Rocephin. She is much improved Sepsis: She had a leukocytosis, fever and confusion. We'll monitor. We'll consult neurology Abnormal troponins: Cardiology consultation, with the recommendations. We'll have heparin drip discontinued if okay with them Hypernatremia, resolved: Due to dehydration, will continue D5 half-normal saline. Hypokalemia him a resolved: We will monitor Chronic recurrent UTI, on suppression therapy well and I'll restart her methenamine. Chronic low back pain: We'll decrease her pain medications and hold her Marinol this time. Moderate malnutrition: I'll hold her Marinol this time due to the side effects mentation issues. Multiple sclerosis: This is possibly an exacerbation brought on by the recent UTI and sepsis. We'll await neurology recommendations. sHe will be reevaluated in the next 24 hours.
[2016-11-16] MEDS ORDERED: BISACODYL 10 MG SUPP RECTAL PRN (12:27)
[2016-11-16] MEDS ORDERED: ACETAMINOPHEN TAB 325 MG TAB PO PRN (12:27)
[2016-11-16] MEDS ORDERED: MELATONIN 3 MG TABLET PO PRN ×2 (12:27→21:00)
[2016-11-16] MEDS ORDERED: DIAZEPAM 5 MG TAB PO PRN (12:27)
[2016-11-16 17:20] LABS: Glucose,Whole Blood 251 mg/dL (75-99)
[2016-11-16] MEDS: HEPARIN SODIUM,PORCINE/D5W PMX 25,000 UNIT in DEXTROSE/WATER 1 500ML.BAG IV SCH (20:59)
[2016-11-16] MEDS ORDERED: NON-FORMULARY DRUG (Naloxegol Oxalate [Movantik] 25 MG) PO SCH (21:00)
[2016-11-16] MEDS ORDERED: METHENAMINE HIPPURATE 1 GM PO SCH (21:00)
[2016-11-16] MEDS ORDERED: AMITRIPTYLINE HCL 25 MG TAB PO SCH (21:00)
[2016-11-16] MEDS: CALCIUM CARB-VIT D 500MG-200UN 1 EACH TAB PO SCH (21:05)
[2016-11-16 21:21] LABS: Glucose,Whole Blood 260 mg/dL (75-99)
[2016-11-17] MEDS: NITROGLYCERIN OINT 1 INCH/GM PACKET TOPICAL SCH ×3 (00:01→12:57)
[2016-11-17 04:11] VITALS: RESP 16
[2016-11-17 06:00] LABS: Glucose,Whole Blood 341 mg/dL (75-99)
[2016-11-17] MEDS ORDERED: LEVOTHYROXINE 75 MCG TAB PO SCH (06:00)
[2016-11-17] MEDS ORDERED: PANTOPRAZOLE 40 MG TABLET PO SCH (06:00)
[2016-11-17] MEDS: DEXTROSE 5%-0.45% NACL 1,000 ML IV SCH (06:21)
[2016-11-17] MEDS: INSULIN LISPRO (humaLOG) 300 UNIT/3 ML VIAL SQ SCH ×2 (06:29→12:47)
[2016-11-17 06:51] LABS: Basophils % (A) 0 %; CH 26.5; CHCM 30.8; Eosinophils # (A) 0.1 k/uL (0-0.7); Eosinophils % (A) 1 %; HCT 30.9 % (34.0-46.0); HDW 2.39; HGB 9.6 gm/dL (11.4-16.0); Hypochromasia Slight; Luc # (Auto) 0.07; Luc % (Auto) 2; Lymphocytes # (A) 0.9 k/uL (1.0-4.8); Lymphocytes % (A) 25 %; MCH 26.7 pg (25.0-35.0); MCV 86.3 fL (80.0-100.0); Mean Platelet Volume 7.2; Monocytes # (A) 0.2 k/uL (0-1.0); Monocytes % (A) 5 %; Neutrophils # (A) 2.5 k/uL (1.3-7.7); Neutrophils % (A) 67 %; RBC 3.58 m/uL (3.80-5.40); RDW 14.2 % (11.5-15.5); WBC 3.7 k/uL (3.8-10.6); WBC (Perox) 3.88
[2016-11-17] MEDS: CALCIUM CARB-VIT D 500MG-200UN 1 EACH TAB PO SCH (08:39)
[2016-11-17] MEDS: ASPIRIN 325 MG TAB PO SCH (08:40)
[2016-11-17] MEDS: METOPROLOL TARTRATE 50 MG TAB PO SCH (08:40)
[2016-11-17] MEDS: ATORVASTATIN 80 MG TAB PO SCH (08:40)
[2016-11-17 08:42] LABS: Anion Gap 8 mmol/L; Blood Urea Nitrogen 11 mg/dL (7-17); Calcium 8.5 mg/dL (8.4-10.2); Carbon Dioxide 22 mmol/L (22-30); Chloride 105 mmol/L (98-107); Magnesium 1.7 mg/dL (1.6-2.3); Non-African American GFR(MDRD) >60 (>60 ml/min/1.73 sqM); Potassium 3.5 mmol/L (3.5-5.1); Sodium 135 mmol/L (137-145)
[2016-11-17] MEDS ORDERED: SODIUM CHLORIDE 0.9% 1,000 ML IV SCH (08:45)
[2016-11-17 08:55] LABS: Glucose 521 mg/dL (74-99)
[2016-11-17] MEDS ORDERED: amLODIPine 5 MG TAB PO SCH (09:00)
[2016-11-17] MEDS ORDERED: DOCUSATE 100 MG CAP PO SCH (09:00)
[2016-11-17] MEDS ORDERED: ESCITALOPRAM 20 MG TAB PO SCH (09:00)
[2016-11-17] MEDS ORDERED: INSULIN GLARGINE 100 UNIT/ML 10 ML VIAL SQ SCH (09:00)
[2016-11-17] MEDS ORDERED: LISINOPRIL 20 MG TAB PO SCH (09:00)
[2016-11-17 11:31] LABS: Glucose,Whole Blood 388 mg/dL (75-99)
[2016-11-17 11:44] VITALS: TEMP 97.3
[2016-11-17] MEDS ORDERED: Potassium Replacement Protocol 1 EACH MISC MISCELLANE PRN (12:27)
[2016-11-17] MEDS ORDERED: Magnesium Replacement Protocol 1 EACH MISC MISCELLANE PRN (12:30)
[2016-11-17] MEDS ORDERED: POTASSIUM CHLORIDE ER 20 MEQ TAB.ER PO SCH (13:00)
[2016-11-17] MEDS ORDERED: MAGNESIUM SULFATE-D5W PMX 1 GM in DEXTROSE/WATER 1 100ML.BAG IVPB SCH (13:00)
--- NOTE | 2016-11-17 14:01 | P.DS ---
Providers Date of admission: 11/14/16 16:38 Expected date of discharge: 11/17/16 Attending physician: Luis Munoz Consults: Cardiology Primary care physician: Luis Munoz [facility] Course: Regina is a 66-year-old white female well-known to Dr. Munoz from [facility] on the [facility]. Medical history significant for advanced multiple sclerosis and only use of her right hand, otherwise she is a functional quadraplegic, and brittle diabetic. Patient was admitted through the emergency department with increased confusion. Patient was found to have evidence of urinary tract infection with urine culture positive for Proteus mirabilis. Patient did have elevated troponins upon admission but pattern was not consistent with acute coronary injury per cardiology. Patient improved with antibiotics and IV hydration. Patient was deemed stable for transfer back to [facility] on the [place] with close follow-up in the outpatient setting. Discharge diagnoses: Metabolic encephalopathy due to UTI and multiple sclerosis, resolved. Sepsis suspect secondary to urinary tract infection. Chronic recurrent UTI Chronic low back pain Moderate malnutrition Multiple sclerosis Anemia of chronic disease. Insulin-dependent diabetes mellitus, with hyperglycemia present on admission. The above impression and plan have been discussed and directed by Dr. Quiroz. Derik RIDDLE acting as scribe for Dr. Quiroz. Pertinent Studies: Chest x-ray; EKG; chest CTA Patient Condition at Discharge: Good Plan - Discharge Summary New Discharge Prescriptions: Cefuroxime Axetil [Ceftin] 500 mg PO BID #14 tab Diazepam [Valium] 5 mg PO TID PRN #21 tab PRN Reason: Spasms Dronabinol 10 mg PO BID@0900,2100 #14 capsule fentaNYL 100MCG/HR PATCH [Duragesic 100MCG/HR] 1 patch TRANSDERM Q72H #2 patch traMADol HCL [Ultram ER] 300 mg PO DAILY@0600 #7 tab.er.24h Discharge Medication List Acetaminophen [Tylenol] 650 mg PO Q4H PRN 08/05/14 [History] Amitriptyline HCl 25 mg PO HS@2100 08/05/14 [History] Docusate Sodium [Dulcolax Stool Softener] 200 mg PO DAILY@0900 08/05/14 [History ] Ergocalciferol [Vitamin D2 (DRISDOL)] 50,000 unit PO SA 08/05/14 [History] Escitalopram [Lexapro] 20 mg PO DAILY@0908/05/14 [History] Insulin Glargine [Lantus] 30 unit SQ DAILY@89908/05/14 [History] Levothyroxine Sodium [Synthroid] 75 mcg PO DAILY@0608/05/14 [History] Lisinopril [Prinivil] 20 mg PO DAILY@0908/05/14 [History] Melatonin 3 mg PO HS PRN 08/05/14 [History] Methenamine Hippurate 1 gm PO BID@0900,209908/05/14 [History] Omeprazole [PriLOSEC] 20 mg PO DAILY@59908/05/14 [History] Polyethylene Glycol 3350 [Miralax] 17 gm PO BID@899,209908/05/14 [History] Sennosides [Senokot] 17.2 mg PO DAILY@89908/05/14 [History] Artificial Tears-Hypromellose [Artificial Tear Drops] 1 drop BOTH EYES BID PRN 03/25/16 [History] Bisacodyl 10 mg RECTAL DAILY PRN 03/25/16 [History] Calcium Carbonate [Calcium] 600 mg PO BID@00,209903/25/16 [History] Fenofibrate Nanocrystallized [Tricor] 160 mg PO HS@209903/25/16 [History] Glucagen Hypokit Solution 1 mg IM Q10M PRN 03/25/16 [History] Inzo Barrier Cream 1 applic TOPICAL BID 03/25/16 [History] Magnesium Citrate [Citrate of Magnesia] 300 ml PO Q72H PRN 03/25/16 [History] Naloxegol Oxalate [Movantik] 25 mg PO HS@209903/25/16 [History] Antifungal Powder 1 applic TOPICAL DAILY 11/14/16 [History] Insulin Aspart [NovoLOG Flexpen] See Protocol SQ ACHS 11/14/16 [History] amLODIPine [Norvasc] 5 mg PO DAILY@0900 11/14/16 [History] Aspirin 81 mg PO DAILY chew 11/17/16 [Rx] Atorvastatin [Lipitor] 80 mg PO DAILY tab 11/17/16 [Rx] Cefuroxime Axetil [Ceftin] 500 mg PO BID #14 tab 11/17/16 [Rx] Diazepam [Valium] 5 mg PO TID PRN #21 tab 11/17/16 [Rx] Dronabinol 10 mg PO BID@0900,2100 #14 capsule 11/17/16 [Rx] Metoprolol Tartrate [Lopressor] 50 mg PO BID tab 11/17/16 [Rx] Nitroglycerin Sl Tabs [Nitrostat] 0.4 mg SUBLINGUAL Q5M PRN #0 tab 11/17/16 [Rx] fentaNYL 100MCG/HR PATCH [Duragesic 100MCG/HR] 1 patch TRANSDERM Q72H #2 patch 11/17/16 [Rx] traMADol HCL [Ultram ER] 300 mg PO DAILY@0600 #7 tab.er.24h 11/17/16 [Rx] Follow up Appointment(s)/Referral(s): Luis Munoz MD [Primary Care Provider] - 1-2 days Pedro Moeller MD [STAFF PHYSICIAN] - 1 Week (weakness with history of MS) Discharge Disposition: TRANSFER TO SNF/ECF
--- NOTE | 2016-11-17 14:22 | P.PN ---
Subjective Principal diagnosis: UTI This 58-year-old female admitted to the hospital with UTI. She does also have history of dementia. She was noted to have mild troponin elevation and for this reason a cardiology consultation was initially requested. She continues today to be on IV heparin. Hemodynamically remaining stable. Troponin abnormality not consistent with acute coronary syndrome. Cardiology's perspective, we'll discontinue the patient's IV heparin, and follow her now on an as-needed basis only. Please don't hesitate to call with any questions. Objective - Vital Signs Vital signs: Vital Signs Temp 97.3 F L 11/17/16 08:00 Pulse 98 11/17/16 08:00 Resp 16 11/17/16 08:00 BP 133/60 11/17/16 08:00 Pulse Ox 99 11/17/16 08:00 Intake & Output 11/16/16 11/17/16 11/17/16 18:59 06:59 18:59 Intake Total 1122 837 779.401 Output Total 1100 1300 Balance 22 -463 779.401 Weight 67.5 kg 60.5 kg Intake: IV 837 Dextrose 5%-0.45% NaCl 1, 675 000 ml @ 75 mls/hr IV . [id number] [facility] Rx#:[id number] Heparin Sodium,Porcine/ 162 D5w Pmx 25,000 unit In Dextrose/Water 1 500ml. bag @ 12 UNITS/KG/HR 17. 41 mls/hr IV .Q24H [facility] Rx #:[id number] Intake, IV Titration 900 197.401 Amount Dextrose 5%-0.45% NaCl 1, 900 000 ml @ 75 mls/hr IV . [id number] [facility] Rx#:[id number] Heparin Sodium,Porcine/ 197.401 D5w Pmx 25,000 unit In Dextrose/Water 1 500ml. bag @ 12 UNITS/KG/HR 17. 41 mls/hr IV .Q24H [facility] Rx #:[id number] Oral 222 582 Output: Urine 1100 1300 Other: Voiding Method Indwelling Catheter Indwelling Catheter Indwelling Catheter # Voids 3 - Exam PHYSICAL EXAMINATION: HEENT: Head is atraumatic, normocephalic. Pupils equal, round. Neck is supple. There is no elevated jugular venous pressure. HEART EXAMINATION: S1 and S2 systolic murmur is heard. CHEST EXAMINATION: Lungs are clear to auscultation and precussion. No chest wall tenderness is noted on palpation or with deep breathing. ABDOMEN: Soft, nontender. Bowel sounds are heard. No organomegaly noted. EXTREMITIES: 2+ peripheral pulses with no evidence of peripheral edema and no calf tenderness noted. NEUROLOGIC patient is awake, alert and oriented -3. . - Labs CBC & Chem 7: 11/17/16 06:30 11/17/16 06:30 Labs: Abnormal Lab Results - Last 24 Hours (Table) 11/16/16 11/16/16 11/17/16 Range/Units 17:04 21:20 05:57 WBC (3.8-10.6) k/uL RBC (3.80-5.40) m/uL Hgb (11.4-16.0) gm/dL Hct (34.0-46.0) % Lymphocytes # (1.0-4.8) k/uL APTT (22.0-30.0) sec Sodium (137-145) mmol/L Glucose (74-99) mg/dL POC Glucose (mg/dL) 251 H 260 H 341 H (75-99) mg/dL 11/17/16 11/17/16 11/17/16 Range/Units 06:30 06:30 06:30 WBC 3.7 L (3.8-10.6) k/uL RBC 3.58 L (3.80-5.40) m/uL Hgb 9.6 L (11.4-16.0) gm/dL Hct 30.9 L (34.0-46.0) % Lymphocytes # 0.9 L (1.0-4.8) k/uL APTT 101.8 H* (22.0-30.0) sec Sodium 135 L (137-145) mmol/L Glucose 521 H* (74-99) mg/dL POC Glucose (mg/dL) (75-99) mg/dL 11/17/16 Range/Units 11:28 WBC (3.8-10.6) k/uL RBC (3.80-5.40) m/uL Hgb (11.4-16.0) gm/dL Hct (34.0-46.0) % Lymphocytes # (1.0-4.8) k/uL APTT (22.0-30.0) sec Sodium (137-145) mmol/L Glucose (74-99) mg/dL POC Glucose (mg/dL) 388 H (75-99) mg/dL Microbiology - Last 24 Hours (Table) 11/14/16 16:50 Urine Culture - Final Urine,Catheterized Proteus mirabilis Assessment and Plan (1) Altered mental status Status: Acute (2) Elevated troponin Status: Acute (3) Multiple sclerosis, primary chronic progressive Status: Chronic (4) Acute renal failure Status: Acute (5) Metabolic encephalopathy Status: Acute (6) Urinary tract infection Status: Acute Plan: From cardiology's perspective, we'll follow this patient with you now on an as- needed basis only, please dont hesitate to call with any questions. DNP note has been reviewed, I agree with a documented findings and plan of care. Patient was seen and examined.
[2016-11-17 16:03] VITALS: BP 150/100; PULSE 78
[2016-11-17 16:40] LABS: Glucose,Whole Blood 208 mg/dL (75-99)
[2016-11-17] MEDS ORDERED: INSULIN LISPRO (humaLOG) 300 UNIT/3 ML VIAL SQ SCH (17:30)
[2016-11-18] MEDS ORDERED: INSULIN GLARGINE 100 UNIT/ML 10 ML VIAL SQ SCH (09:00)
[2016-11-18] MEDS ORDERED: ASPIRIN 81 MG CHEW PO SCH (09:00)
[2016-11-22] MEDS ORDERED: ERGOCALCIFEROL 50,000 UNIT CAP PO SCH (09:00)
== END 2016-11-17 17:09 | DRG 871 ==
LOC: EC 14:05 → 6SEL 16:38
PROVIDERS: ADMIT Family Medicine; ATTEND Family Medicine
DX: A41.9 Sepsis, unspecified organism (principal); G93.41 Metabolic encephalopathy; G82.50 Quadriplegia, unspecified; N17.9 Acute kidney failure, unspecified; E87.0 Hyperosmolality and hypernatremia; E44.0 Moderate protein-calorie malnutrition; N39.0 Urinary tract infection, site not specified; E11.65 Type 2 diabetes mellitus with hyperglycemia; F03.90 Unspecified dementia, unspecified severity, without behavioral disturbance, psychotic disturbance, mood disturbance, and anxiety; D63.8 Anemia in other chronic diseases classified elsewhere; E86.0 Dehydration; F32.9 Major depressive disorder, single episode, unspecified; G35 Multiple sclerosis; G89.29 Other chronic pain; I10 Essential (primary) hypertension; J44.9 Chronic obstructive pulmonary disease, unspecified; E07.9 Disorder of thyroid, unspecified; K59.09 Other constipation; M54.5 Low back pain; R74.8 Abnormal levels of other serum enzymes; B96.4 Proteus (mirabilis) (morganii) as the cause of diseases classified elsewhere; E87.6 Hypokalemia; Z79.4 Long term (current) use of insulin; Z79.899 Other long term (current) drug therapy; Z87.891 Personal history of nicotine dependence; Z68.20 Body mass index [BMI] 20.0-20.9, adult; Z99.3 Dependence on wheelchair; Z87.440 Personal history of urinary (tract) infections
CPT/HCPCS: 36415; 71010; 71275; 80048; 80053; 80061; 81001; 82140; 82550; 82553; 83036; 83735; 84132; 84484; 85025; 85049; 85610; 85730; 87077; 87086; 87186; 93005

== ENCOUNTER → 2017-04-27 | Outpatient (CLI) | payer MEDICARE, OTHER ==
[2017-04-27 16:29] LABS: Non-African American GFR(MDRD) 55 (>60 ml/min/1.73 sqM)
== END | disposition home or self-care (01) ==
LOC: RADMRIMAIN 15:13
PROVIDERS: ATTEND Nurse Practitioner Acute Care
DX: Z01.818 Encounter for other preprocedural examination (principal); G35 Multiple sclerosis; M54.2 Cervicalgia
CPT/HCPCS: 82565

== ENCOUNTER → 2018-07-02 | Outpatient (CLI) | payer MEDICARE, OTHER ==
--- NOTE | 2018-07-02 16:28 | MR ---
EXAMINATION TYPE: MR brain wo/w con DATE OF EXAM: 07/02/2018 COMPARISON: Prior MRI brain October 16, 2015. HISTORY: Multiple sclerosis TECHNIQUE: Multiplanar, multisequence images of the brain and brainstem is performed without and with IV contras t, utilizing 6 mL intravenous Gadavist gadolinium contrast is administered intravenously. Demyelinat ing disease protocol with additional Sagittal Flair sequence performed. FINDINGS: Exam noted suboptimal because patient could not lie flat and kept moving. T2 Lesions Present : Yes Approximate Number of Lesions: Difficult to accurately count due to confluent periventricular appeara nce Locations Identified : Predominantly periventricular and deep Size of Reference Lesion(s): 1. 5 x 4 x 7 mm ovoid lesion left frontal periventricular axial image 23 and sagittal image 11 stable Enhancing Lesion(s) Present: No T1 Hypointense Lesion(s) Present: Yes Change from Prior: Stable Diffusion weighted images could not be performed due to patient motion. There is no worrisome extra- axial fluid collection. There is ventricular and sulcal prominence redemonstrated. Midline structures demonstrate normal morphology. The craniocervical junction appears within normal limits. Post contrast images demonstrate no abnormal enhancement. The dural venous sinuses appear pa tent. The visualized sinuses are clear and the globes are intact. IMPRESSION: Mild to moderate diffuse cerebral atrophy and nonspecific white matter changes redemonstr ated. No enhancing lesions are seen. Suboptimal study without significant change from 2016 MRI.
== END | disposition home or self-care (01) ==
LOC: RADMRIMAIN 14:02
PROVIDERS: ATTEND Family Medicine
DX: G31.9 Degenerative disease of nervous system, unspecified (principal); R90.89 Other abnormal findings on diagnostic imaging of central nervous system; G35 Multiple sclerosis
CPT/HCPCS: 70553; A9585

== ENCOUNTER 2019-08-01 20:58 | Inpatient (IN) | payer MEDICARE, OTHER ==
[2019-08-01] MEDS ORDERED: ACETAMINOPHEN TAB 325 MG TAB PO STA (21:43)
[2019-08-01] MEDS ORDERED: SODIUM CHLORIDE 0.9% 1,000 ML IV ONE (21:57)
[2019-08-01 22:17] LABS: Basophils # (A) 0.1 k/uL (0-0.2); Basophils % (A) 1 %; Eosinophils # (A) 0.1 k/uL (0-0.7); Eosinophils % (A) 1 %; HCT 29.7 % (34.0-46.0); HGB 9.7 gm/dL (11.4-16.0); Lymphocytes # (A) 0.6 k/uL (1.0-4.8); Lymphocytes % (A) 8 %; MCH 29.5 pg (25.0-35.0); MCHC 32.7 g/dL (31.0-37.0); MCV 90.2 fL (80.0-100.0); Mean Platelet Volume 8.6; Monocytes # (A) 0.2 k/uL (0-1.0); Monocytes % (A) 3 %; Neutrophils # (A) 6.2 k/uL (1.3-7.7); Neutrophils % (A) 88 %; Platelet Count 256 k/uL (150-450); RBC 3.29 m/uL (3.80-5.40); RDW 14.8 % (11.5-15.5); WBC 7.1 k/uL (3.8-10.6)
--- NOTE | 2019-08-01 22:25 | XR ---
EXAMINATION TYPE: XR chest 2V DATE OF EXAM: 08/01/2019 COMPARISON: NONE HISTORY: Altered mental status. Pain. TECHNIQUE: FINDINGS: There is some coarse linear density in the right lung and also left lung base. There is no heart failure. Heart size is normal. There is no pleural effusion. IMPRESSION: There is patchy bilateral atelectasis and fibrotic change that is new compared to old exa m. No heart failure. Normal heart.
[2019-08-01 22:33] LABS: INR 1.2 (<1.2); Partial Thromboplastin Time 24.3 sec (22.0-30.0); Prothrombin Time 12.1 sec (9.0-12.0)
[2019-08-01 22:43] LABS: ALT 29 U/L (4-34); AST 89 U/L (14-36); African American GFR (CKD) 79 (>60 ml/min/1.73 sqM); Albumin 3.3 g/dL (3.5-5.0); Alkaline Phosphatase 39 U/L (38-126); Blood Urea Nitrogen 42 mg/dL (7-17); Calcium 8.9 mg/dL (8.4-10.2); Carbon Dioxide 25 mmol/L (22-30); Chloride 107 mmol/L (98-107); Glucose 98 mg/dL (74-99); Non-African American GFR(CKD) 69 (>60 ml/min/1.73 sqM); Sodium 137 mmol/L (137-145); Total Bilirubin 1.6 mg/dL (0.2-1.3); Total Protein 6.9 g/dL (6.3-8.2)
[2019-08-01] MEDS: SODIUM CHLORIDE 0.9% 1,000 ML IV SCH (23:04)
[2019-08-02] MEDS ORDERED: PIPERACILLIN-TAZOBACTAM 3.375 GM in SODIUM CHLORIDE 0.9% 100 ML IVPB STA ×2
[2019-08-02] MEDS ORDERED: IBUPROFEN 600 MG TAB PO STA (00:11)
--- NOTE | 2019-08-02 00:16 | ED ---
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 Patient has history of frequent UTI. Patiennt only complaint is increased fatigue, general malaise. Denies abdominal pain, diarrhea,neck or head pain. Patient denies cough, or increasing weakness of the right UE. Patient denies chest pain or SOB. patient has 1 episode of vomiting at the long term on nieces arrival, and was found to be febrile. Given tylenol. Patien transported to the ER. Patient remaining ROS (-). Pt febrile on arrival. - Related Data Home Medications Medication Instructions Recorded Confirmed Docusate Sodium [Dulcolax Stool 200 mg PO DAILY@119908/05/14 08/02/19 Softener] Ergocalciferol [Vitamin D2 50,000 unit PO SA 08/05/14 08/02/19 (DRISDOL)] Escitalopram [Lexapro] 20 mg PO DAILY@89908/05/14 08/02/19 Lisinopril [Prinivil] 20 mg PO HS@209908/05/14 08/02/19 Omeprazole [PriLOSEC] 20 mg PO DAILY@89908/05/14 08/02/19 Sennosides [Senokot] 17.2 mg PO DAILY@119908/05/14 08/02/19 Naloxegol Oxalate [Movantik] 25 mg PO HS@209903/25/16 08/02/19 amLODIPine [Norvasc] 5 mg PO DAILY@119911/14/16 08/02/19 Amitriptyline HCl [Elavil] 50 mg PO HS@209908/02/19 08/02/19 Atorvastatin [Lipitor] 80 mg PO HS@209908/02/19 08/02/19 Dulaglutide [Trulicity] 0.75 mg SQ MO 08/02/19 08/02/19 Fenofibrate 160 mg PO HS@209908/02/19 08/02/19 Ferrous Sulfate [Iron (65 MG 325 mg PO DAILY@119908/02/19 08/02/19 Elemental)] Levothyroxine Sodium [Synthroid] 100 mcg PO HS@209908/02/19 08/02/19 Melatonin 10 mg PO HS@209908/02/19 08/02/19 Memantine [Namenda] 5 mg PO DAILY@0900 08/02/19 08/02/19 diphenhydrAMINE [Benadryl] 25 mg PO HS@209908/02/19 08/02/19 Previous Rx's Medication Instructions Recorded Aspirin 81 mg PO DAILY chew 11/17/16 Cefuroxime Axetil [Ceftin] 500 mg PO BID #14 tab 08/04/19 Diazepam [Valium] 5 mg PO TID PRN #9 tab 08/04/19 INSULIN LISPRO (HumaLOG) [humaLOG] 0 unit SQ ACHS #1 vial 08/04/19 Insulin Detemir (Levemir) [Levemir] 20 unit SQ DAILY@0700 syr 08/04/19 Levothyroxine Sodium [Synthroid] 75 mcg PO DAILY@0600 tab 08/04/19 traMADol HCL [Ultram ER] 300 mg PO DAILY 3 Days #3 tab 08/04/19 traMADol HCL [Ultram ER] 300 mg PO DAILY@0900 #3 tab 08/04/19 Allergies Allergy/AdvReac Type Severity Reaction Status Date / Time No Known Allergies Allergy Verified 08/02/19 09:25 Review of Systems ROS Statement: Those systems with pertinent positive or pertinent negative responses have been documented in the HPI. ROS Other: All systems not noted in ROS Statement are negative. Past Medical History Past Medical History: Chest Pain / Angina, COPD, CVA/TIA, Diabetes Mellitus, Hypertension, Memory Impairment, Neurologic Disorder, Thyroid Disorder Additional Past Medical History / Comment(s): Current UTI, on suppression treatment, chronic constipation, abdominal chronic pain. History of Any Multi-Drug Resistant Organisms: ESBL Date of last positivie culture/infection: 05/16/19 MDRO Source:: ESBL URINE Past Surgical History: Adenoidectomy, Tonsillectomy Additional Past Surgical History / Comment(s): right leg ORIF, multiple scopes Past Psychological History: Depression Smoking Status: Former smoker Past Alcohol Use History: None Reported Past Drug Use History: None Reported - Past Family History Mother History Unknown: Yes Father History Unknown: Yes General Exam - General Exam Comments Initial Comments: General: The patient is awake and alert, in no distress, appears unwell Eye: +3 mm pupils are equal, round and reactive to light, extra-ocular movements are intact. No nystagmus. There is normal conjunctiva bilaterally. No signs of icterus. Ears, nose, mouth and throat: There are moist mucous membranes and no oral lesions. Neck: The neck is supple, there is no tenderness or JVD. Cardiovascular: There is a regular rate and rhythm. No murmur, rub or gallop is appreciated. Respiratory: Respirations are non-labored, breath sounds are equal. No wheezes, stridor, rales. Some Rhonchi noted. Gastrointestinal: Soft, non-distended, non-tender abdomen without masses or organomegaly noted. There is no rebound or guarding present. Bowel sounds are unremarkable. Musculoskeletal: Contracted 3/4 extremities, with movement of the right UE. Sensation intact of all 4 extremities. Radial and DP pulses equal bilaterally 2+. Neurological: A&O x 3. There are no obvious motor or sensory deficits. Coordination appears grossly intact. Speech is normal. Skin: Skin is warm and dry and no rashes or lesions are noted. Psychiatric: Cooperative Limitations: no limitations Course Vital Signs 08/01/19 08/01/19 08/02/19 21:58 23:07 07:00 Temperature 100.4 F H 97.0 F L Pulse Rate 78 76 Pulse Rate [ 74 Pulse Oximetery ] Respiratory 78 H 18 16 Rate Blood Pressure 110/55 95/59 Blood Pressure 115/54 [Right Arm] O2 Sat by Pulse 92 L 95 92 L Oximetry Medical Decision Making - Medical Decision Making 69yo female presenting for cc of fever. History of UTI. Patient has no pneumonia, lungs clear. No signficciant leukocytosis. BP stable. Patient has no abdominal pain or other focal symptoms. Urine pending givne appearance I suspect UTI as cause of infection, case was signed out to Dr. Savage who will admit patient, and decide final disposition. - Lab Data Result diagrams: 08/04/19 02:55 08/04/19 04:12 Lab Results 08/01/19 08/01/19 08/01/19 Range/Units 20:16 20:16 22:23 WBC 7.1 (3.8-10.6) k/uL RBC 3.29 L (3.80-5.40) m/uL Hgb 9.7 L (11.4-16.0) gm/dL Hct 29.7 L (34.0-46.0) % MCV 90.2 (80.0-100.0) fL MCH 29.5 (25.0-35.0) pg MCHC 32.7 (31.0-37.0) g/dL RDW 14.8 (11.5-15.5) % Plt Count 256 (150-450) k/uL Neutrophils % 88 % Lymphocytes % 8 % Monocytes % 3 % Eosinophils % 1 % Basophils % 1 % Neutrophils # 6.2 (1.3-7.7) k/uL Lymphocytes # 0.6 L (1.0-4.8) k/uL Monocytes # 0.2 (0-1.0) k/uL Eosinophils # 0.1 (0-0.7) k/uL Basophils # 0.1 (0-0.2) k/uL Hypochromasia PT 12.1 H (9.0-12.0) sec INR 1.2 H (<1.2) APTT 24.3 (22.0-30.0) sec Sodium 137 (137-145) mmol/L Potassium (3.5-5.1) mmol/L Chloride 107 (98-107) mmol/L Carbon Dioxide 25 (22-30) mmol/L Anion Gap mmol/L BUN 42 H (7-17) mg/dL Creatinine 0.86 (0.52-1.04) mg/dL Est GFR (CKD-EPI)AfAm 79 (>60 ml/min/1.73 sqM) Est GFR (CKD-EPI)NonAf 69 (>60 ml/min/1.73 sqM) Glucose 98 (74-99) mg/dL POC Glucose (mg/dL) (75-99) mg/dL POC Glu Wardrobe Stylist ID Estimated Ave Glu mg/dL Hemoglobin A1c (4.0-6.0) % Plasma Lactic Acid Lizandro (0.7-2.0) mmol/L Calcium 8.9 (8.4-10.2) mg/dL Total Bilirubin 1.6 H (0.2-1.3) mg/dL AST 89 H (14-36) U/L ALT 29 (4-34) U/L Alkaline Phosphatase 39 (38-126) U/L Total Protein 6.9 (6.3-8.2) g/dL Albumin 3.3 L (3.5-5.0) g/dL Urine Color Urine Appearance (Clear) Urine pH (5.0-8.0) Ur Specific [place] (1.001-1.035) Urine Protein (Negative) Urine Glucose (UA) (Negative) Urine Ketones (Negative) Urine Blood (Negative) Urine Nitrite (Negative) Urine Bilirubin (Negative) Urine Urobilinogen (<2.0) mg/dL Ur Leukocyte Esterase (Negative) Urine RBC (0-5) /hpf Urine WBC (0-5) /hpf Urine WBC Clumps (None) /hpf Ur Squamous Epith Cells (0-4) /hpf Urine Bacteria (None) /hpf Urine Mucus (None) /hpf Influenza Type A RNA (Not Detectd) Influenza Type B (PCR) (Not Detectd) 08/01/19 08/01/19 08/02/19 Range/Units 22:23 23:04 01:40 WBC (3.8-10.6) k/uL RBC (3.80-5.40) m/uL Hgb (11.4-16.0) gm/dL Hct (34.0-46.0) % MCV (80.0-100.0) fL MCH (25.0-35.0) pg MCHC (31.0-37.0) g/dL RDW (11.5-15.5) % Plt Count (150-450) k/uL Neutrophils % % Lymphocytes % % Monocytes % % Eosinophils % % Basophils % % Neutrophils # (1.3-7.7) k/uL Lymphocytes # (1.0-4.8) k/uL Monocytes # (0-1.0) k/uL Eosinophils # (0-0.7) k/uL Basophils # (0-0.2) k/uL Hypochromasia PT (9.0-12.0) sec INR (<1.2) APTT (22.0-30.0) sec Sodium (137-145) mmol/L Potassium (3.5-5.1) mmol/L Chloride (98-107) mmol/L Carbon Dioxide (22-30) mmol/L Anion Gap mmol/L BUN (7-17) mg/dL Creatinine (0.52-1.04) mg/dL Est GFR (CKD-EPI)AfAm (>60 ml/min/1.73 sqM) Est GFR (CKD-EPI)NonAf (>60 ml/min/1.73 sqM) Glucose (74-99) mg/dL POC Glucose (mg/dL) (75-99) mg/dL POC Glu Wardrobe Stylist ID Estimated Ave Glu mg/dL Hemoglobin A1c (4.0-6.0) % Plasma Lactic Acid Lizandro 1.6 (0.7-2.0) mmol/L Calcium (8.4-10.2) mg/dL Total Bilirubin (0.2-1.3) mg/dL AST (14-36) U/L ALT (4-34) U/L Alkaline Phosphatase (38-126) U/L Total Protein (6.3-8.2) g/dL Albumin (3.5-5.0) g/dL Urine Color Yellow Urine Appearance Cloudy H (Clear) Urine pH 7.5 (5.0-8.0) Ur Specific [place] 1.017 (1.001-1.035) Urine Protein 1+ H (Negative) Urine Glucose (UA) Negative (Negative) Urine Ketones Negative (Negative) Urine Blood Moderate H (Negative) Urine Nitrite Negative (Negative) Urine Bilirubin Negative (Negative) Urine Urobilinogen <2.0 (<2.0) mg/dL Ur Leukocyte Esterase Large H (Negative) Urine RBC 38 H (0-5) /hpf Urine WBC >182 H (0-5) /hpf Urine WBC Clumps Many H (None) /hpf Ur Squamous Epith Cells (0-4) /hpf Urine Bacteria Occasional H (None) /hpf Urine Mucus Rare H (None) /hpf Influenza Type A RNA Not Detected (Not Detectd) Influenza Type B (PCR) Not Detected (Not Detectd) 08/02/19 08/02/19 08/02/19 Range/Units 08:53 09:14 11:24 WBC (3.8-10.6) k/uL RBC (3.80-5.40) m/uL Hgb (11.4-16.0) gm/dL Hct (34.0-46.0) % MCV (80.0-100.0) fL MCH (25.0-35.0) pg MCHC (31.0-37.0) g/dL RDW (11.5-15.5) % Plt Count (150-450) k/uL Neutrophils % % Lymphocytes % % Monocytes % % Eosinophils % % Basophils % % Neutrophils # (1.3-7.7) k/uL Lymphocytes # (1.0-4.8) k/uL Monocytes # (0-1.0) k/uL Eosinophils # (0-0.7) k/uL Basophils # (0-0.2) k/uL Hypochromasia PT (9.0-12.0) sec INR (<1.2) APTT (22.0-30.0) sec Sodium (137-145) mmol/L Potassium (3.5-5.1) mmol/L Chloride (98-107) mmol/L Carbon Dioxide (22-30) mmol/L Anion Gap mmol/L BUN (7-17) mg/dL Creatinine (0.52-1.04) mg/dL Est GFR (CKD-EPI)AfAm (>60 ml/min/1.73 sqM) Est GFR (CKD-EPI)NonAf (>60 ml/min/1.73 sqM) Glucose (74-99) mg/dL POC Glucose (mg/dL) 56 L 101 H 190 H (75-99) mg/dL POC Glu Wardrobe Stylist Tosin Lawson Jennifer Montoya, Jennifer Estimated Ave Glu mg/dL Hemoglobin A1c (4.0-6.0) % Plasma Lactic Acid Lizandro (0.7-2.0) mmol/L Calcium (8.4-10.2) mg/dL Total Bilirubin (0.2-1.3) mg/dL AST (14-36) U/L ALT (4-34) U/L Alkaline Phosphatase (38-126) U/L Total Protein (6.3-8.2) g/dL Albumin (3.5-5.0) g/dL Urine Color Urine Appearance (Clear) Urine pH (5.0-8.0) Ur Specific [place] (1.001-1.035) Urine Protein (Negative) Urine Glucose (UA) (Negative) Urine Ketones (Negative) Urine Blood (Negative) Urine Nitrite (Negative) Urine Bilirubin (Negative) Urine Urobilinogen (<2.0) mg/dL Ur Leukocyte Esterase (Negative) Urine RBC (0-5) /hpf Urine WBC (0-5) /hpf Urine WBC Clumps (None) /hpf Ur Squamous Epith Cells (0-4) /hpf Urine Bacteria (None) /hpf Urine Mucus (None) /hpf Influenza Type A RNA (Not Detectd) Influenza Type B (PCR) (Not Detectd) 08/02/19 08/02/19 08/02/19 Range/Units 17:25 20:23 22:08 WBC (3.8-10.6) k/uL RBC (3.80-5.40) m/uL Hgb (11.4-16.0) gm/dL Hct (34.0-46.0) % MCV (80.0-100.0) fL MCH (25.0-35.0) pg MCHC (31.0-37.0) g/dL RDW (11.5-15.5) % Plt Count (150-450) k/uL Neutrophils % % Lymphocytes % % Monocytes % % Eosinophils % % Basophils % % Neutrophils # (1.3-7.7) k/uL Lymphocytes # (1.0-4.8) k/uL Monocytes # (0-1.0) k/uL Eosinophils # (0-0.7) k/uL Basophils # (0-0.2) k/uL Hypochromasia PT (9.0-12.0) sec INR (<1.2) APTT (22.0-30.0) sec Sodium (137-145) mmol/L Potassium (3.5-5.1) mmol/L Chloride (98-107) mmol/L Carbon Dioxide (22-30) mmol/L Anion Gap mmol/L BUN (7-17) mg/dL Creatinine (0.52-1.04) mg/dL Est GFR (CKD-EPI)AfAm (>60 ml/min/1.73 sqM) Est GFR (CKD-EPI)NonAf (>60 ml/min/1.73 sqM) Glucose (74-99) mg/dL POC Glucose (mg/dL) 410 H 466 H 478 H (75-99) mg/dL POC Glu Wardrobe Stylist ID Robin Sandy Pal, Merissa Sanchez, Farhana [address] Glu mg/dL Hemoglobin A1c (4.0-6.0) % Plasma Lactic Acid Lizandro (0.7-2.0) mmol/L Calcium (8.4-10.2) mg/dL Total Bilirubin (0.2-1.3) mg/dL AST (14-36) U/L ALT (4-34) U/L Alkaline Phosphatase (38-126) U/L Total Protein (6.3-8.2) g/dL Albumin (3.5-5.0) g/dL Urine Color Urine Appearance (Clear) Urine pH (5.0-8.0) Ur Specific [place] (1.001-1.035) Urine Protein (Negative) Urine Glucose (UA) (Negative) Urine Ketones (Negative) Urine Blood (Negative) Urine Nitrite (Negative) Urine Bilirubin (Negative) Urine Urobilinogen (<2.0) mg/dL Ur Leukocyte Esterase (Negative) Urine RBC (0-5) /hpf Urine WBC (0-5) /hpf Urine WBC Clumps (None) /hpf Ur Squamous Epith Cells (0-4) /hpf Urine Bacteria (None) /hpf Urine Mucus (None) /hpf Influenza Type A RNA (Not Detectd) Influenza Type B (PCR) (Not Detectd) 08/03/19 08/03/19 08/03/19 Range/Units 05:44 05:46 05:59 WBC (3.8-10.6) k/uL RBC (3.80-5.40) m/uL Hgb (11.4-16.0) gm/dL Hct (34.0-46.0) % MCV (80.0-100.0) fL MCH (25.0-35.0) pg MCHC (31.0-37.0) g/dL RDW (11.5-15.5) % Plt Count (150-450) k/uL Neutrophils % % Lymphocytes % % Monocytes % % Eosinophils % % Basophils % % Neutrophils # (1.3-7.7) k/uL Lymphocytes # (1.0-4.8) k/uL Monocytes # (0-1.0) k/uL Eosinophils # (0-0.7) k/uL Basophils # (0-0.2) k/uL Hypochromasia PT (9.0-12.0) sec INR (<1.2) APTT (22.0-30.0) sec Sodium (137-145) mmol/L Potassium (3.5-5.1) mmol/L Chloride (98-107) mmol/L Carbon Dioxide (22-30) mmol/L Anion Gap mmol/L BUN (7-17) mg/dL Creatinine (0.52-1.04) mg/dL Est GFR (CKD-EPI)AfAm (>60 ml/min/1.73 sqM) Est GFR (CKD-EPI)NonAf (>60 ml/min/1.73 sqM) Glucose (74-99) mg/dL POC Glucose (mg/dL) 26 L 29 L 30 L (75-99) mg/dL POC Glu Wardrobe Stylist CHERELLE Kae, Merissa Kae, Merissa Ashleyjb, Merissa [address] Glu mg/dL Hemoglobin A1c (4.0-6.0) % Plasma Lactic Acid Lizandro (0.7-2.0) mmol/L Calcium (8.4-10.2) mg/dL Total Bilirubin (0.2-1.3) mg/dL AST (14-36) U/L ALT (4-34) U/L Alkaline Phosphatase (38-126) U/L Total Protein (6.3-8.2) g/dL Albumin (3.5-5.0) g/dL Urine Color Urine Appearance (Clear) Urine pH (5.0-8.0) Ur Specific [place] (1.001-1.035) Urine Protein (Negative) Urine Glucose (UA) (Negative) Urine Ketones (Negative) Urine Blood (Negative) Urine Nitrite (Negative) Urine Bilirubin (Negative) Urine Urobilinogen (<2.0) mg/dL Ur Leukocyte Esterase (Negative) Urine RBC (0-5) /hpf Urine WBC (0-5) /hpf Urine WBC Clumps (None) /hpf Ur Squamous Epith Cells (0-4) /hpf Urine Bacteria (None) /hpf Urine Mucus (None) /hpf Influenza Type A RNA (Not Detectd) Influenza Type B (PCR) (Not Detectd) 08/03/19 08/03/19 08/03/19 Range/Units 06:15 07:15 10:43 WBC (3.8-10.6) k/uL RBC (3.80-5.40) m/uL Hgb (11.4-16.0) gm/dL Hct (34.0-46.0) % MCV (80.0-100.0) fL MCH (25.0-35.0) pg MCHC (31.0-37.0) g/dL RDW (11.5-15.5) % Plt Count (150-450) k/uL Neutrophils % % Lymphocytes % % Monocytes % % Eosinophils % % Basophils % % Neutrophils # (1.3-7.7) k/uL Lymphocytes # (1.0-4.8) k/uL Monocytes # (0-1.0) k/uL Eosinophils # (0-0.7) k/uL Basophils # (0-0.2) k/uL Hypochromasia PT (9.0-12.0) sec INR (<1.2) APTT (22.0-30.0) sec Sodium (137-145) mmol/L Potassium (3.5-5.1) mmol/L Chloride (98-107) mmol/L Carbon Dioxide (22-30) mmol/L Anion Gap mmol/L BUN (7-17) mg/dL Creatinine (0.52-1.04) mg/dL Est GFR (CKD-EPI)AfAm (>60 ml/min/1.73 sqM) Est GFR (CKD-EPI)NonAf (>60 ml/min/1.73 sqM) Glucose (74-99) mg/dL POC Glucose (mg/dL) 137 H 137 H (75-99) mg/dL POC Glu Wardrobe Stylist ID Kae MerissaBelle Tomlinson [address]imated [address] Glu mg/dL 120 Hemoglobin A1c 5.8 (4.0-6.0) % Plasma Lactic Acid Lizandro (0.7-2.0) mmol/L Calcium (8.4-10.2) mg/dL Total Bilirubin (0.2-1.3) mg/dL AST (14-36) U/L ALT (4-34) U/L Alkaline Phosphatase (38-126) U/L Total Protein (6.3-8.2) g/dL Albumin (3.5-5.0) g/dL Urine Color Urine Appearance (Clear) Urine pH (5.0-8.0) Ur Specific [place] (1.001-1.035) Urine Protein (Negative) Urine Glucose (UA) (Negative) Urine Ketones (Negative) Urine Blood (Negative) Urine Nitrite (Negative) Urine Bilirubin (Negative) Urine Urobilinogen (<2.0) mg/dL Ur Leukocyte Esterase (Negative) Urine RBC (0-5) /hpf Urine WBC (0-5) /hpf Urine WBC Clumps (None) /hpf Ur Squamous Epith Cells (0-4) /hpf Urine Bacteria (None) /hpf Urine Mucus (None) /hpf Influenza Type A RNA (Not Detectd) Influenza Type B (PCR) (Not Detectd) 08/03/19 08/03/19 08/03/19 Range/Units 10:43 10:43 11:41 WBC 4.2 (3.8-10.6) k/uL RBC 2.69 L (3.80-5.40) m/uL Hgb 7.8 L D (11.4-16.0) gm/dL Hct 25.2 L (34.0-46.0) % MCV 93.7 (80.0-100.0) fL MCH 29.0 (25.0-35.0) pg MCHC 31.0 (31.0-37.0) g/dL RDW 14.9 (11.5-15.5) % Plt Count 167 (150-450) k/uL Neutrophils % % Lymphocytes % % Monocytes % % Eosinophils % % Basophils % % Neutrophils # (1.3-7.7) k/uL Lymphocytes # (1.0-4.8) k/uL Monocytes # (0-1.0) k/uL Eosinophils # (0-0.7) k/uL Basophils # (0-0.2) k/uL Hypochromasia Slight PT (9.0-12.0) sec INR (<1.2) APTT (22.0-30.0) sec Sodium 141 (137-145) mmol/L Potassium 3.9 (3.5-5.1) mmol/L Chloride 111 H (98-107) mmol/L Carbon Dioxide 24 (22-30) mmol/L Anion Gap 6 mmol/L BUN 30 H (7-17) mg/dL Creatinine 0.92 (0.52-1.04) mg/dL Est GFR (CKD-EPI)AfAm 73 (>60 ml/min/1.73 sqM) Est GFR (CKD-EPI)NonAf 63 (>60 ml/min/1.73 sqM) Glucose 63 L (74-99) mg/dL POC Glucose (mg/dL) 48 L (75-99) mg/dL POC Glu Wardrobe Stylist ID Belle Simpson Estimated [address] Glu mg/dL Hemoglobin A1c (4.0-6.0) % Plasma Lactic Acid Lizandro (0.7-2.0) mmol/L Calcium 8.4 (8.4-10.2) mg/dL Total Bilirubin (0.2-1.3) mg/dL AST (14-36) U/L ALT (4-34) U/L Alkaline Phosphatase (38-126) U/L Total Protein (6.3-8.2) g/dL Albumin (3.5-5.0) g/dL Urine Color Urine Appearance (Clear) Urine pH (5.0-8.0) Ur Specific [place] (1.001-1.035) Urine Protein (Negative) Urine Glucose (UA) (Negative) Urine Ketones (Negative) Urine Blood (Negative) Urine Nitrite (Negative) Urine Bilirubin (Negative) Urine Urobilinogen (<2.0) mg/dL Ur Leukocyte Esterase (Negative) Urine RBC (0-5) /hpf Urine WBC (0-5) /hpf Urine WBC Clumps (None) /hpf Ur Squamous Epith Cells (0-4) /hpf Urine Bacteria (None) /hpf Urine Mucus (None) /hpf Influenza Type A RNA (Not Detectd) Influenza Type B (PCR) (Not Detectd) 08/03/19 08/03/19 08/03/19 Range/Units 12:02 17:21 20:14 WBC (3.8-10.6) k/uL RBC (3.80-5.40) m/uL Hgb (11.4-16.0) gm/dL Hct (34.0-46.0) % MCV (80.0-100.0) fL MCH (25.0-35.0) pg MCHC (31.0-37.0) g/dL RDW (11.5-15.5) % Plt Count (150-450) k/uL Neutrophils % % Lymphocytes % % Monocytes % % Eosinophils % % Basophils % % Neutrophils # (1.3-7.7) k/uL Lymphocytes # (1.0-4.8) k/uL Monocytes # (0-1.0) k/uL Eosinophils # (0-0.7) k/uL Basophils # (0-0.2) k/uL Hypochromasia PT (9.0-12.0) sec INR (<1.2) APTT (22.0-30.0) sec Sodium (137-145) mmol/L Potassium (3.5-5.1) mmol/L Chloride (98-107) mmol/L Carbon Dioxide (22-30) mmol/L Anion Gap mmol/L BUN (7-17) mg/dL Creatinine (0.52-1.04) mg/dL Est GFR (CKD-EPI)AfAm (>60 ml/min/1.73 sqM) Est GFR (CKD-EPI)NonAf (>60 ml/min/1.73 sqM) Glucose (74-99) mg/dL POC Glucose (mg/dL) 96 206 H 282 H (75-99) mg/dL POC Glu Wardrobe Stylist Belle Law, Merissa Joseph [address] Glu mg/dL Hemoglobin A1c (4.0-6.0) % Plasma Lactic Acid Lizandro (0.7-2.0) mmol/L Calcium (8.4-10.2) mg/dL Total Bilirubin (0.2-1.3) mg/dL AST (14-36) U/L ALT (4-34) U/L Alkaline Phosphatase (38-126) U/L Total Protein (6.3-8.2) g/dL Albumin (3.5-5.0) g/dL Urine Color Urine Appearance (Clear) Urine pH (5.0-8.0) Ur Specific [place] (1.001-1.035) Urine Protein (Negative) Urine Glucose (UA) (Negative) Urine Ketones (Negative) Urine Blood (Negative) Urine Nitrite (Negative) Urine Bilirubin (Negative) Urine Urobilinogen (<2.0) mg/dL Ur Leukocyte Esterase (Negative) Urine RBC (0-5) /hpf Urine WBC (0-5) /hpf Urine WBC Clumps (None) /hpf Ur Squamous Epith Cells (0-4) /hpf Urine Bacteria (None) /hpf Urine Mucus (None) /hpf Influenza Type A RNA (Not Detectd) Influenza Type B (PCR) (Not Detectd) 08/03/19 08/04/19 08/04/19 Range/Units 22:32 02:01 02:03 WBC (3.8-10.6) k/uL RBC (3.80-5.40) m/uL Hgb (11.4-16.0) gm/dL Hct (34.0-46.0) % MCV (80.0-100.0) fL MCH (25.0-35.0) pg MCHC (31.0-37.0) g/dL RDW (11.5-15.5) % Plt Count (150-450) k/uL Neutrophils % % Lymphocytes % % Monocytes % % Eosinophils % % Basophils % % Neutrophils # (1.3-7.7) k/uL Lymphocytes # (1.0-4.8) k/uL Monocytes # (0-1.0) k/uL Eosinophils # (0-0.7) k/uL Basophils # (0-0.2) k/uL Hypochromasia PT (9.0-12.0) sec INR (<1.2) APTT (22.0-30.0) sec Sodium (137-145) mmol/L Potassium (3.5-5.1) mmol/L Chloride (98-107) mmol/L Carbon Dioxide (22-30) mmol/L Anion Gap mmol/L BUN (7-17) mg/dL Creatinine (0.52-1.04) mg/dL Est GFR (CKD-EPI)AfAm (>60 ml/min/1.73 sqM) Est GFR (CKD-EPI)NonAf (>60 ml/min/1.73 sqM) Glucose (74-99) mg/dL POC Glucose (mg/dL) >600 H >600 H (75-99) mg/dL POC Glu Wardrobe Stylist Merissa Serrano [address] Glu mg/dL Hemoglobin A1c (4.0-6.0) % Plasma Lactic Acid Lizandro (0.7-2.0) mmol/L Calcium (8.4-10.2) mg/dL Total Bilirubin (0.2-1.3) mg/dL AST (14-36) U/L ALT (4-34) U/L Alkaline Phosphatase (38-126) U/L Total Protein (6.3-8.2) g/dL Albumin (3.5-5.0) g/dL Urine Color Yellow Urine Appearance Cloudy H (Clear) Urine pH 5.5 (5.0-8.0) Ur Specific [place] 1.026 (1.001-1.035) Urine Protein Trace H (Negative) Urine Glucose (UA) Trace H (Negative) Urine Ketones Negative (Negative) Urine Blood Large H (Negative) Urine Nitrite Negative (Negative) Urine Bilirubin Negative (Negative) Urine Urobilinogen <2.0 (<2.0) mg/dL Ur Leukocyte Esterase Large H (Negative) Urine RBC >182 H (0-5) /hpf Urine WBC 115 H (0-5) /hpf Urine WBC Clumps (None) /hpf Ur Squamous Epith Cells <1 (0-4) /hpf Urine Bacteria Rare H (None) /hpf Urine Mucus (None) /hpf Influenza Type A RNA (Not Detectd) Influenza Type B (PCR) (Not Detectd) 08/04/19 08/04/19 08/04/19 Range/Units 02:55 02:55 03:49 WBC 2.9 L (3.8-10.6) k/uL RBC 2.75 L (3.80-5.40) m/uL Hgb 7.9 L (11.4-16.0) gm/dL Hct 25.9 L (34.0-46.0) % MCV 94.1 (80.0-100.0) fL MCH 28.7 (25.0-35.0) pg MCHC 30.5 L (31.0-37.0) g/dL RDW 14.8 (11.5-15.5) % Plt Count 191 (150-450) k/uL Neutrophils % 52 % Lymphocytes % 33 % Monocytes % 7 % Eosinophils % 6 % Basophils % 1 % Neutrophils # 1.5 (1.3-7.7) k/uL Lymphocytes # 1.0 (1.0-4.8) k/uL Monocytes # 0.2 (0-1.0) k/uL Eosinophils # 0.2 (0-0.7) k/uL Basophils # 0.0 (0-0.2) k/uL Hypochromasia Slight PT (9.0-12.0) sec INR (<1.2) APTT (22.0-30.0) sec Sodium 142 (137-145) mmol/L Potassium 3.6 (3.5-5.1) mmol/L Chloride 112 H (98-107) mmol/L Carbon Dioxide 26 (22-30) mmol/L Anion Gap 4 mmol/L BUN 22 H (7-17) mg/dL Creatinine 0.95 (0.52-1.04) mg/dL Est GFR (CKD-EPI)AfAm 70 (>60 ml/min/1.73 sqM) Est GFR (CKD-EPI)NonAf 61 (>60 ml/min/1.73 sqM) Glucose 135 H (74-99) mg/dL POC Glucose (mg/dL) 375 H (75-99) mg/dL POC Glu Wardrobe Stylist ID Merissa [address] Glu mg/dL Hemoglobin A1c (4.0-6.0) % Plasma Lactic Acid Lizandro (0.7-2.0) mmol/L Calcium 8.2 L (8.4-10.2) mg/dL Total Bilirubin (0.2-1.3) mg/dL AST (14-36) U/L ALT (4-34) U/L Alkaline Phosphatase (38-126) U/L Total Protein (6.3-8.2) g/dL Albumin (3.5-5.0) g/dL Urine Color Urine Appearance (Clear) Urine pH (5.0-8.0) Ur Specific [place] (1.001-1.035) Urine Protein (Negative) Urine Glucose (UA) (Negative) Urine Ketones (Negative) Urine Blood (Negative) Urine Nitrite (Negative) Urine Bilirubin (Negative) Urine Urobilinogen (<2.0) mg/dL Ur Leukocyte Esterase (Negative) Urine RBC (0-5) /hpf Urine WBC (0-5) /hpf Urine WBC Clumps (None) /hpf Ur Squamous Epith Cells (0-4) /hpf Urine Bacteria (None) /hpf Urine Mucus (None) /hpf Influenza Type A RNA (Not Detectd) Influenza Type B (PCR) (Not Detectd) 08/04/19 08/04/19 08/04/19 Range/Units 04:12 07:06 07:09 WBC (3.8-10.6) k/uL RBC (3.80-5.40) m/uL Hgb (11.4-16.0) gm/dL Hct (34.0-46.0) % MCV (80.0-100.0) fL MCH (25.0-35.0) pg MCHC (31.0-37.0) g/dL RDW (11.5-15.5) % Plt Count (150-450) k/uL Neutrophils % % Lymphocytes % % Monocytes % % Eosinophils % % Basophils % % Neutrophils # (1.3-7.7) k/uL Lymphocytes # (1.0-4.8) k/uL Monocytes # (0-1.0) k/uL Eosinophils # (0-0.7) k/uL Basophils # (0-0.2) k/uL Hypochromasia PT (9.0-12.0) sec INR (<1.2) APTT (22.0-30.0) sec Sodium (137-145) mmol/L Potassium (3.5-5.1) mmol/L Chloride (98-107) mmol/L Carbon Dioxide (22-30) mmol/L Anion Gap mmol/L BUN (7-17) mg/dL Creatinine (0.52-1.04) mg/dL Est GFR (CKD-EPI)AfAm (>60 ml/min/1.73 sqM) Est GFR (CKD-EPI)NonAf (>60 ml/min/1.73 sqM) Glucose 98 (74-99) mg/dL POC Glucose (mg/dL) 46 L 41 L (75-99) mg/dL POC Glu [employer] [place] [address] Glu mg/dL Hemoglobin A1c (4.0-6.0) % Plasma Lactic Acid [place] (0.7-2.0) mmol/L Calcium (8.4-10.2) mg/dL Total Bilirubin (0.2-1.3) mg/dL AST (14-36) U/L ALT (4-34) U/L Alkaline Phosphatase (38-126) U/L Total Protein (6.3-8.2) g/dL Albumin (3.5-5.0) g/dL Urine Color Urine Appearance (Clear) Urine pH (5.0-8.0) Ur Specific [place] (1.001-1.035) Urine Protein (Negative) Urine Glucose (UA) (Negative) Urine Ketones (Negative) Urine Blood (Negative) Urine Nitrite (Negative) Urine Bilirubin (Negative) Urine Urobilinogen (<2.0) mg/dL Ur Leukocyte Esterase (Negative) Urine RBC (0-5) /hpf Urine WBC (0-5) /hpf Urine WBC Clumps (None) /hpf Ur Squamous Epith Cells (0-4) /hpf Urine Bacteria (None) /hpf Urine Mucus (None) /hpf Influenza Type A RNA (Not Detectd) Influenza Type B (PCR) (Not Detectd) 08/04/19 08/04/19 Range/Units 07:38 08:00 WBC (3.8-10.6) k/uL RBC (3.80-5.40) m/uL Hgb (11.4-16.0) gm/dL Hct (34.0-46.0) % MCV (80.0-100.0) fL MCH (25.0-35.0) pg MCHC (31.0-37.0) g/dL RDW (11.5-15.5) % Plt Count (150-450) k/uL Neutrophils % % Lymphocytes % % Monocytes % % Eosinophils % % Basophils % % Neutrophils # (1.3-7.7) k/uL Lymphocytes # (1.0-4.8) k/uL Monocytes # (0-1.0) k/uL Eosinophils # (0-0.7) k/uL Basophils # (0-0.2) k/uL Hypochromasia PT (9.0-12.0) sec INR (<1.2) APTT (22.0-30.0) sec Sodium (137-145) mmol/L Potassium (3.5-5.1) mmol/L Chloride (98-107) mmol/L Carbon Dioxide (22-30) mmol/L Anion Gap mmol/L BUN (7-17) mg/dL Creatinine (0.52-1.04) mg/dL Est GFR (CKD-EPI)AfAm (>60 ml/min/1.73 sqM) Est GFR (CKD-EPI)NonAf (>60 ml/min/1.73 sqM) Glucose (74-99) mg/dL POC Glucose (mg/dL) 72 L 86 (75-99) mg/dL POC Glu Wardrobe Stylist [place], [address] Glu mg/dL Hemoglobin A1c (4.0-6.0) % Plasma Lactic Acid [place] (0.7-2.0) mmol/L Calcium (8.4-10.2) mg/dL Total Bilirubin (0.2-1.3) mg/dL AST (14-36) U/L ALT (4-34) U/L Alkaline Phosphatase (38-126) U/L Total Protein (6.3-8.2) g/dL Albumin (3.5-5.0) g/dL Urine Color Urine Appearance (Clear) Urine pH (5.0-8.0) Ur Specific [place] (1.001-1.035) Urine Protein (Negative) Urine Glucose (UA) (Negative) Urine Ketones (Negative) Urine Blood (Negative) Urine Nitrite (Negative) Urine Bilirubin (Negative) Urine Urobilinogen (<2.0) mg/dL Ur Leukocyte Esterase (Negative) Urine RBC (0-5) /hpf Urine WBC (0-5) /hpf Urine WBC Clumps (None) /hpf Ur Squamous Epith Cells (0-4) /hpf Urine Bacteria (None) /hpf Urine Mucus (None) /hpf Influenza Type A RNA (Not Detectd) Influenza Type B (PCR) (Not Detectd) Disposition Clinical Impression: UTI (urinary tract infection), Fever Disposition: ADMITTED IP TO THIS [facility] Condition: Stable Is patient prescribed a controlled substance at d/c from ED?: No Time of Disposition: 03:51 Decision to Admit Reason: Admit from EC Decision Date: 08/01/19 Decision Time: 12:30
[2019-08-02 02:18] LABS: Appearance,Urine Cloudy (Clear); Bacteria,Urine Occasional /hpf; Bilirubin,Urine Negative (Negative); Blood,Urine Moderate (Negative); Color,Urine Yellow; Glucose,Urine (UA) Negative (Negative); Ketones,Urine Negative (Negative); Leukocyte Esterase,Urine Large (Negative); Mucus,Urine Rare /hpf; Nitrite,Urine Negative (Negative); PH, Urine 7.5 (5.0-8.0); Protein,Urine 1+ (Negative); RBC,Urine 38 /hpf (0-5); Specific Gravity,Urine 1.017 (1.001-1.035); Urobilinogen,Urine <2.0 mg/dL (<2.0); WBC,Urine >182 /hpf (0-5)
[2019-08-02] MEDS ORDERED: NALOXONE 0.4 MG/ML 1 ML VIAL IV PRN (02:51)
[2019-08-02] MEDS ORDERED: ACETAMINOPHEN TAB 325 MG TAB PO PRN (02:51)
[2019-08-02] MEDS: SODIUM CHLORIDE 0.9% 1,000 ML IV SCH ×2 (07:36→19:43)
[2019-08-02 09:04] LABS: Glucose,Whole Blood 56 mg/dL (75-99)
[2019-08-02 09:19] LABS: Glucose,Whole Blood 101 mg/dL (75-99)
[2019-08-02] MEDS: LEVOTHYROXINE 75 MCG TAB PO SCH (09:49)
[2019-08-02] MEDS: ASPIRIN 81 MG PO SCH (10:27)
[2019-08-02] MEDS: DRONABINOL 2.5 MG CAP PO SCH ×2 (10:28→19:42)
[2019-08-02] MEDS: ESCITALOPRAM 20 MG TAB PO SCH (10:28)
[2019-08-02 11:27] LABS: Glucose,Whole Blood 190 mg/dL (75-99)
--- NOTE | 2019-08-02 12:28 | HP ---
HISTORY AND PHYSICAL This is a 69-year-old white female complaining of fever, chills, altered mental status, history of progressive multiple sclerosis with 3 to 4 extremity weakness. Complains of fever and altered mental status. Found to have a large amount of UTI with urosepsis at which time she was admitted to the hospital. She denies cough or any congestion or hemoptysis, diarrhea, or vomiting. HOME MEDICATIONS: Home medications include: 1. Lantus 30 units daily. 2. Lexapro 20 daily. 3. Vitamin D 50,000 units once a week. 4. Tylenol. 5. Amitriptyline 25 at night. 6. Synthroid 75 mcg daily. 7. Prinivil 20 mg daily. 8. Melatonin 3 mg at night. 9. Norvasc 5 mg daily. 10.NovoLog a.c. and at bedtime. 11.Methenamine b.i.d. 12.Omeprazole 20 mg daily. 13.Prinivil 20 mg daily. 14.TriCor 160 at bedtime. 15.Calcium 600 b.i.d. ALLERGIES: See list, which apparently is negative. REVIEW OF SYSTEMS: Fourteen-point review of systems as mentioned above, otherwise negative. PAST MEDICAL HISTORY: Severe multiple sclerosis, hypothyroidism, chronic neuropathy, insulin-dependent diabetes mellitus, prior CVA, TIA, COPD, hypertension, hypothyroidism, chronic pain syndrome, history ESBL in the urine. SURGERIES: Adenoidectomy, tonsillectomy, right leg ORIF. History of depression. Former smoker. FAMILY HISTORY: Mother, father unknown. PHYSICAL EXAMINATION: Vital signs are reviewed. She is awake, answering questions. She appears very weak and fatigued. Dry mucous membranes. Skin is dry. Normal conjunctivae. NECK: Supple. No mass. HEART: Regular rate and rhythm. RESPIRATORY: Breath sounds are equal. No wheezes or stridor. GI: Soft, nontender. Normal bowel sounds. MUSCULOSKELETAL: Three out of four extremity strength. NEUROLOGIC: Alert and oriented x2. Speech is normal. SKIN: As mentioned above. PSYCH: Fair mood and affect. T-max 100.4, pulse 76 to 78, blood pressure is 95 to 110 over 50 to 55, O2 92% to 95% on room air. White count 7.1, hemoglobin is 9.7. S sodium was 137. Influenza is negative. ASSESSMENT: 1. Urosepsis. 2. Urinary tract infection. 3. Profound multiple sclerosis. 4. Hypothyroidism. Please see further orders in the chart. Get Neurology consult, Infectious Disease. Continue on Zosyn for ESBL infection. MMODL / IJN: [id number] /
[2019-08-02] MEDS: DIAZEPAM 5 MG TAB PO PRN (12:48)
[2019-08-02] MEDS: PIPERACILLIN-TAZOBACTAM 3.375 GM in SODIUM CHLORIDE 0.9% 100 ML IVPB SCH ×2 (16:00→23:18)
[2019-08-02 17:27] LABS: Glucose,Whole Blood 410 mg/dL (75-99)
[2019-08-02 20:27] LABS: Glucose,Whole Blood 466 mg/dL (75-99)
--- NOTE | 2019-08-02 20:48 | P.CNNES ---
History of Present Illness Consult date: 08/02/19 Reason for Consult: MS, progressive History of Present Illness: HISTORY OF PRESENT ILLNESS: Thank you for allowing me to evaluate Ms. Regina Reed. Ms. Reed is a 69 year-old woman with PMhx of multiple sclerosis, COPD, DM, HTN, memory impairment, hypothyroidism, depression, presented to [facility] with complaints of fever, consulting Neurology for progressive MS. Patient states that she may be having MS exacerbation because "she feels smarter, everything seems clearer." Patient with no worsening weakness, numbness or tingling. Denies any headache, nausea, vomiting dizziness, changes in vision. PAST MEDICAL HISTORY: multiple sclerosis, COPD, DM, HTN, memory impairment, hypothyroidism, depression PAST SURGICAL HISTORY: tonsillectomy, adenoidectomy, RLE ORIF HOME MEDICATIONS: Vitamin D, Lexapro, lisinopril, omeprazole, sennosides, movantik, amlodipine, aspirin, trulicity, fenofibrate, synthroid, insulin, memantine, melatonin, ferrous sulfate, amitriptyline, benadryl, tramadol, atorvastatin ALLERGIES: NKDA SOCIAL HISTORY: Former smoker. REVIEW OF SYSTEMS: The 14 systems are reviewed and no additional points are identified compared to the review of systems documented history and physical PHYSICAL EXAMINATION: VITAL SIGNS: T 97.3 HR 101 RR 16 BP 101/51 O2 sat 97% on RA GEN.: NAD, pleasant and cooperative HEENT: NCAT, sclera without icterus NECK: Supple, no carotid bruit SKIN AND EXTREMITIES: Warm to touch, no edema NEURO: MENTAL STATUS: Patient alert and oriented to self, place, time. Able to name the current president. Speech fluent, able to name and repeat, following all commands readily. No right and left disorientation, neglect. CRANIAL NERVES II THROUGH XII: II: Pupils are equal and reactive to light symme trically. Visual [place] are intact to confrontation. III, IV, : No ptosis. Extraocular movements full. V: Facial sensation intact from V1-3. VII. No clear facial asymmetry. IX, X: Symmetric palate elevation. XI: Shoulder shrug intact. XII: Tongue midline without fasciculation or atrophy. MOTOR: Increased tone in LUE and LLE. Patient with difficulty moving her LUE/LLE, which is patient's baseline. No pronator drift or tremor. Strength is 5/5 in RUE and RLE. SENSORY: Intact to light touch in all 4 extremities. REFLEXES: 2+ in RUE/RLE. Toes are mute. COORDINATION: Finger to nose intact with RUE. No dysmetria. GAIT: deferred DIAGNOSTIC TESTING: LABORATORY: WBC 7.1 Hgb 9.7 Platelet 256 Na 137 Cl 107 CO2 25 BUN 42 Cr 0.86 glucose 98 AST 89 ALT 29 AlkPhos 39 urinalysis positive leukesterase, WBC IMAGING: MRI brain w/ and w/o contrast 07/02/18: Mild to moderate diffuse cerebral atrophy and nonspecific white matter changes redemonstrate. No enhancing lesions. Stable features of multiple sclerosis. Periventricular lesions noted. No significant change from MRI obtained in 2016. ASSESSMENT: 69 year-old woman with PMhx of multiple sclerosis, COPD, DM, HTN, memory impairment, hypothyroidism, depression, presented to [facility] with complaints of fever, consulting Neurology for progressive MS. Patient with no clear MS exacerbation symptoms. Patient states that she does not ever want to be started on disease modifying medications. Patient is okay with steroids if she needs it. RECOMMENDATIONS: 1. Will obtain MRI brain w/ and w/o contrast 2. If patient with active lesions, will treat with steroids. 3. Neurology will continue to follow Past Medical History Past Medical History: Chest Pain / Angina, COPD, CVA/TIA, Diabetes Mellitus, Hypertension, Memory Impairment, Neurologic Disorder, Thyroid Disorder Additional Past Medical History / Comment(s): Current UTI, on suppression treatment, chronic constipation, abdominal chronic pain. History of Any Multi-Drug Resistant Organisms: ESBL Date of last positivie culture/infection: 05/16/19 MDRO Source:: ESBL URINE Past Surgical History: Adenoidectomy, Tonsillectomy Additional Past Surgical History / Comment(s): right leg ORIF, multiple scopes Past Psychological History: Depression Additional Psychological History / Comment(s): resident [place], von of ESBL Smoking Status: Former smoker Past Alcohol Use History: None Reported Past Drug Use History: None Reported - Past Family History Mother History Unknown: Yes Father History Unknown: Yes Medications and Allergies Home Medications Medication Instructions Recorded Confirmed Type Docusate Sodium [Dulcolax Stool 200 mg PO DAILY@1200 08/05/14 08/02/19 History Softener] Ergocalciferol [Vitamin D2 50,000 unit PO SA 08/05/14 08/02/19 History (DRISDOL)] Escitalopram [Lexapro] 20 mg PO DAILY@0908/05/14 08/02/19 History Lisinopril [Prinivil] 20 mg PO HS@209908/05/14 08/02/19 History Omeprazole [PriLOSEC] 20 mg PO DAILY@89908/05/14 08/02/19 History Sennosides [Senokot] 17.2 mg PO DAILY@119908/05/14 08/02/19 History Naloxegol Oxalate [Movantik] 25 mg PO HS@209903/25/16 08/02/19 History amLODIPine [Norvasc] 5 mg PO DAILY@119911/14/16 08/02/19 History Aspirin 81 mg PO DAILY chew 11/17/16 08/02/19 Rx Amitriptyline HCl [Elavil] 50 mg PO HS@209908/02/19 08/02/19 History Atorvastatin [Lipitor] 80 mg PO HS@209908/02/19 08/02/19 History Dulaglutide [Trulicity] 0.75 mg SQ MO 08/02/19 08/02/19 History Fenofibrate 160 mg PO HS@209908/02/19 08/02/19 History Ferrous Sulfate [Feosol] 325 mg PO DAILY@119908/02/19 08/02/19 History INSULIN ASPART (NovoLOG) [NovoLOG See Protocol SQ HS 08/02/19 08/02/19 History (formulary)] Insulin Glargine,Hum.rec.anlog 20 unit SQ BID@08,209908/02/19 08/02/19 History [Basaglar Kwikpen U-100] Levothyroxine Sodium [Synthroid] 100 mcg PO HS@209908/02/19 08/02/19 History Melatonin 10 mg PO HS@209908/02/19 08/02/19 History Memantine [Namenda] 5 mg PO DAILY@0900 08/02/19 08/02/19 History diphenhydrAMINE [Benadryl] 25 mg PO HS@209908/02/19 08/02/19 History traMADol HCL [Ultram ER] 300 mg PO DAILY@0900 08/02/19 08/02/19 History Allergies Allergy/AdvReac Type Severity Reaction Status Date / Time No Known Allergies Allergy Verified 08/02/19 09:25 Physical Examination - Vital Signs Vital Signs: Vital Signs Temp Pulse Pulse Resp BP BP Pulse Ox 08/02/19 12:07 97.3 F L 101 H 16 101/51 97 08/02/19 07:00 97.0 F L 74 16 115/54 92 L 08/01/19 23:07 76 18 95/59 95 08/01/19 21:58 100.4 F H 78 78 H 110/55 92 L Intake and Output 08/02/19 08/02/19 08/02/19 06:59 14:59 22:59 Intake Total 500 Balance 500 Intake: Oral 500 Other: # Voids 1 Weight 65.317 kg Results - Laboratory Findings CBC and BMP: 08/01/19 20:16 08/01/19 22:23 Abnormal Lab Findings: Abnormal Labs 08/01/19 08/01/19 08/01/19 20:16 20:16 22:23 RBC 3.29 L Hgb 9.7 L Hct 29.7 L Lymphocytes # 0.6 L PT 12.1 H INR 1.2 H BUN 42 H POC Glucose (mg/dL) Total Bilirubin 1.6 H AST 89 H Albumin 3.3 L Urine Appearance Urine Protein Urine Blood Ur Leukocyte Esterase Urine RBC Urine WBC Urine WBC Clumps Urine Bacteria Urine Mucus 08/02/19 08/02/19 08/02/19 01:40 08:53 09:14 RBC Hgb Hct Lymphocytes # PT INR BUN POC Glucose (mg/dL) 56 L 101 H Total Bilirubin AST Albumin Urine Appearance Cloudy H Urine Protein 1+ H Urine Blood Moderate H Ur Leukocyte Esterase Large H Urine RBC 38 H Urine WBC >182 H Urine WBC Clumps Many H Urine Bacteria Occasional H Urine Mucus Rare H 08/02/19 11:24 RBC Hgb Hct Lymphocytes # PT INR BUN POC Glucose (mg/dL) 190 H Total Bilirubin AST Albumin Urine Appearance Urine Protein Urine Blood Ur Leukocyte Esterase Urine RBC Urine WBC Urine WBC Clumps Urine Bacteria Urine Mucus
[2019-08-02] MEDS ORDERED: INSULIN DETEMIR (LEVEMIR) 100 UNIT/ML SYR SQ SCH (21:00)
[2019-08-02 22:10] LABS: Glucose,Whole Blood 478 mg/dL (75-99)
[2019-08-02] MEDS: LEVOTHYROXINE 100 MCG TAB PO SCH (22:26)
[2019-08-02] MEDS: diphenhydrAMINE 25 MG CAP PO SCH (22:26)
[2019-08-02] MEDS: MELATONIN 5 MG TABLET PO SCH (22:27)
[2019-08-02] MEDS: LISINOPRIL 20 MG TAB PO SCH (22:27)
[2019-08-02] MEDS: AMITRIPTYLINE HCL 50 MG TAB PO SCH (22:27)
[2019-08-02] MEDS: ATORVASTATIN 80 MG TAB PO SCH (22:27)
[2019-08-02] MEDS: FENOFIBRATE 160 MG TAB PO SCH (22:27)
[2019-08-02] MEDS: INSULIN ASPART (NovoLOG) 100 UNIT/ML VIAL SQ SCH (22:27)
[2019-08-02] MEDS: NALOXEGOL OXALATE 25 MG PO SCH (22:51)
[2019-08-03] MEDS: SODIUM CHLORIDE 0.9% 1,000 ML IV SCH ×3 (03:32→23:22)
[2019-08-03] MEDS: LEVOTHYROXINE 75 MCG TAB PO SCH (05:31)
[2019-08-03 05:48] LABS: Glucose,Whole Blood 29 mg/dL (75-99)
[2019-08-03 05:48] LABS: Glucose,Whole Blood 26 mg/dL (75-99)
[2019-08-03] MEDS ORDERED: DEXTROSE 10 % IN WATER 250 ML IV ONE (05:56)
[2019-08-03] MEDS ORDERED: DEXTROSE 10 % IN WATER 150 ML IV ONE (05:56)
[2019-08-03 06:01] LABS: Glucose,Whole Blood 30 mg/dL (75-99)
[2019-08-03 06:17] LABS: Glucose,Whole Blood 137 mg/dL (75-99)
--- NOTE | 2019-08-03 06:50 | CONS ---
CONSULTATION DATE OF SERVICE: 08/02/2019 REASON FOR CONSULTATION: Urinary tract infection. HISTORY OF PRESENT ILLNESS: The patient is a 69-year-old female who was brought in last night for evaluation of fever and generalized weakness in this patient who did have history of multiple sclerosis. Patient had been complaining of increased fatigue and generalized malaise with the symptoms that he has been getting worse for the last few days. No clear history of abdominal pain. No nausea, vomiting, or any diarrhea. The patient denies significant burning or frequency of urine. remains to have generalized weakness and body aches. On arrival to the ER, the patient did have a fever of 100.4. White count was normal at 7.1. The patient did have positive UA with large leukocyte esterase and more than 182 WBCs. Cultures pending. Influenza serology was negative. The patient did have a chest x-ray that was reported for some patchy bilateral atelectasis and fibrotic changes. Patient was started on Zosyn. Infectious Disease was consulted for further recommendations regarding antibiotic therapy. REVIEW OF SYSTEMS: Positive points have been mentioned in HPI. Rest of systems negative. PAST MEDICAL HISTORY: CVA, TIA, diabetes mellitus, hypertension, COPD, angina, recurrent UTI. PAST SURGICAL HISTORY: Tonsillectomy, adenoidectomy, right leg ORIF. SOCIAL HISTORY: Remote history of smoking. No drinking or drug use. FAMILY HISTORY: No pertinent findings noticed. ALLERGIES: No known drug allergies. MEDICATIONS: Medications currently include the patient is on Tylenol, Elavil, Norvasc, aspirin, Lipitor, Valium, Benadryl, Colace, Marinol, vitamin D2, Lexapro, Lofibra, iron sulfate, Levemir, Synthroid, melatonin, Namenda, Narcan, and Zosyn. PHYSICAL EXAMINATION: Blood pressure 136/70 with a pulse of 95, temperature 97.5. She is 94% on room air. General description is an elderly female lying in bed in no distress. No tachypnea or accessory muscle of respiration use. HEENT: Examination shows slight pallor. No scleral icterus. Oral mucous membranes dry. No pharyngeal erythema or thrush NECK; Trachea central. No thyromegaly. LUNGS: Unlabored breathing, clear to auscultation anteriorly. No wheeze or crackles. HEART: S1, S2. Regular rate and rhythm. No added sounds. ABDOMEN: Soft. No tenderness. No guarding or rigidity. EXTREMITIES: No edema of feet. SKIN EXAMINATION: No rash or mass palpable. NEUROLOGICALLY: Patient is awake, alert, oriented x2. Mood and affect normal. LABS: Hemoglobin 9.7, white count 7.1. BUN of 42, creatinine 0.86. Electrolytes have been normal. Bilirubin elevated 1.6. Urine has been positive. Influenza serology was negative. DIAGNOSTIC IMPRESSION AND PLAN: Patient presented to hospital with fever and weakness. This patient did have a positive UA with a history of recurrent urinary tract infections, likely representing symptomatic urinary tract infection in this patient currently with no other obvious focus of infection. PLAN: 1. Zosyn 3.375 grams q.8 the patient, fever responded, will continue. 2. Gentle IV fluid. 3. We will follow up on clinical condition and culture to further adjust medication if needed. Thank you for this consultation. Will follow this patient along with you. MMODL / IJN: [id number] /
[2019-08-03 07:18] LABS: Glucose,Whole Blood 137 mg/dL (75-99)
[2019-08-03] MEDS: INSULIN ASPART (NovoLOG) 100 UNIT/ML VIAL SQ SCH ×4 (07:36→20:22)
[2019-08-03] MEDS: traMADol 50 MG TAB PO SCH (07:59)
[2019-08-03] MEDS: PANTOPRAZOLE 40 MG TABLET PO SCH (07:59)
[2019-08-03] MEDS: DIAZEPAM 5 MG TAB PO PRN ×2 (07:59→20:46)
[2019-08-03] MEDS: ESCITALOPRAM 20 MG TAB PO SCH (07:59)
[2019-08-03] MEDS: ASPIRIN 81 MG PO SCH (07:59)
[2019-08-03] MEDS: MEMANTINE 5 MG TAB PO SCH (07:59)
[2019-08-03] MEDS: PIPERACILLIN-TAZOBACTAM 3.375 GM in SODIUM CHLORIDE 0.9% 100 ML IVPB SCH ×3 (09:22→23:22)
--- NOTE | 2019-08-03 09:23 | MR ---
EXAMINATION TYPE: MR brain wo/w con DATE OF EXAM: 08/03/2019 8:51 AM COMPARISON: 07/02/2018 HISTORY: MS CONTRAST: Patient received 6.5 mL intravenous Gadavist gadolinium contrast. Multiplanar and multispin-echo imaging of the brain was performed . Pre and post contrast enhanced i mages are obtained. The ventricles, basal cisterns and sulci overlying the cerebral convexities are moderately enlarged. There is evidence of moderate periventricular white matter ischemic demyelination. Confluency 2 lesi ons noted within the periventricular regions and centrum semiovale which are nonspecific. Overall pool earance is stable. Considerable mass. Remote deep white matter insults are also noted. No acute edema is seen on diffusion weighted imaging. There is no evidence for midline shift or mass effect. Acute intracranial hemorrhage or extra-axial collection is not evident. No enhancing lesions are seen. The paranasal sinuses and mastoid air cells are well-aerated. IMPRESSION: 1. Stable features of MS. 2. Age-related atrophic and chronic small vessel ischemic change. No acute cranial process identified .
[2019-08-03 11:35] LABS: Calcium 8.4 mg/dL (8.4-10.2); Potassium 3.9 mmol/L (3.5-5.1)
[2019-08-03] MEDS: INSULIN DETEMIR (LEVEMIR) 100 UNIT/ML SYR SQ SCH ×2 (11:36→20:46)
[2019-08-03] MEDS: DRONABINOL 2.5 MG CAP PO SCH (11:37)
[2019-08-03 11:43] LABS: Glucose,Whole Blood 48 mg/dL (75-99)
[2019-08-03 11:54] LABS: HCT 25.2 % (34.0-46.0); Hypochromasia Slight; MCV 93.7 fL (80.0-100.0); Mean Platelet Volume 8.4; Platelet Count 167 k/uL (150-450); RBC 2.69 m/uL (3.80-5.40); RDW 14.9 % (11.5-15.5); WBC 4.2 k/uL (3.8-10.6)
[2019-08-03 12:04] LABS: Glucose,Whole Blood 96 mg/dL (75-99)
[2019-08-03 12:18] LABS: HGB 7.8 gm/dL (11.4-16.0)
[2019-08-03] MEDS: DOCUSATE 100 MG CAP PO SCH (13:20)
[2019-08-03] MEDS: FERROUS SULFATE 325 MG TAB PO SCH (13:20)
[2019-08-03] MEDS: amLODIPine 5 MG TAB PO SCH (13:21)
[2019-08-03] MEDS: SENNOSIDES 8.6 MG TAB PO SCH (13:21)
[2019-08-03] MEDS: SODIUM FERRIC GLUCONAT-SUCROSE 125 MG in SODIUM CHLORIDE 0.9% 100 ML IVPB SCH (15:24)
[2019-08-03 17:22] LABS: Glucose,Whole Blood 206 mg/dL (75-99)
[2019-08-03 20:20] LABS: Glucose,Whole Blood 282 mg/dL (75-99)
[2019-08-03] MEDS: NALOXEGOL OXALATE 25 MG PO SCH (20:35)
[2019-08-03] MEDS: diphenhydrAMINE 25 MG CAP PO SCH (20:45)
[2019-08-03] MEDS: MELATONIN 5 MG TABLET PO SCH (20:45)
[2019-08-03] MEDS: LISINOPRIL 20 MG TAB PO SCH (20:45)
[2019-08-03] MEDS: FENOFIBRATE 160 MG TAB PO SCH (20:45)
[2019-08-03] MEDS: ATORVASTATIN 80 MG TAB PO SCH (20:46)
[2019-08-03] MEDS: LEVOTHYROXINE 100 MCG TAB PO SCH (20:46)
[2019-08-03] MEDS: AMITRIPTYLINE HCL 50 MG TAB PO SCH (20:46)
--- NOTE | 2019-08-03 22:10 | P.PN ---
Progress Note - Text Progress Note Date: 08/03/19 SUBJECTIVE/INTERVAL EVENTS: Pt sleeping. Able to wake up with verbal stimuli. No acute overnight events. Patient feels sick overall but no pain. PHYSICAL EXAMINATION: VITAL SIGNS: T 96.9 HR 69 RR 18 BP 91/54 O2 sat 94% on RA GEN.: NAD, pleasant and cooperative HEENT: NCAT, sclera without icterus NECK: Supple, no carotid bruit SKIN AND EXTREMITIES: Warm to touch, no edema NEURO: MENTAL STATUS: Patient alert and oriented to self, place, time. Able to name the current president. Speech fluent, able to name and repeat, following all commands readily. No right and left disorientation, neglect. CRANIAL NERVES II THROUGH XII: II: Pupils are equal and reactive to light symmetrically. Visual [place] are intact to confrontation. III, IV, : No ptosis. Extraocular movements full. V: Facial sensation intact from V1-3. VII. No clear facial asymmetry. IX, X: Symmetric palate elevation. XI: Shoulder shrug intact. XII: Tongue midline without fasciculation or atrophy. MOTOR: Increased tone in LUE and LLE. Patient with difficulty moving her LUE/LLE, which is patient's baseline. No pronator drift or tremor. Strength is 5/5 in RUE and RLE. SENSORY: Intact to light touch in all 4 extremities. REFLEXES: 2+ in RUE/RLE. Toes are mute. COORDINATION: Finger to nose intact with RUE. No dysmetria. GAIT: deferred DIAGNOSTIC TESTING: LABORATORY: WBC 7.1 Hgb 9.7 Platelet 256 Na 137 Cl 107 CO2 25 BUN 42 Cr 0.86 glucose 98 AST 89 ALT 29 AlkPhos 39 urinalysis positive leukesterase, WBC IMAGING: MRI brain w/ and w/o contrast 08/03/2019: Stable features of MS. Age-related atrophic and small vessel ischemic changes. MRI brain w/ and w/o contrast 07/02/18: Mild to moderate diffuse cerebral atrophy and nonspecific white matter changes redemonstrate. No enhancing lesions. Stable features of multiple sclerosis. Periventricular lesions noted. No significant change from MRI obtained in 2016. ASSESSMENT: 69 year-old woman with PMhx of multiple sclerosis, COPD, DM, HTN, memory impairment, hypothyroidism, depression, presented to [facility] with complaints of fever, consulting Neurology for progressive MS. Patient with no clear MS exacerbation symptoms. Patient states that she does not ever want to be started on disease modifying medications. Patient is okay with steroids if she needs it. MRI brain w/ and w/o contrast with no contrast enhancing lesions, MS features stable. RECOMMENDATIONS: 1. No further studies or treatment with medication recommended at this time. 2. Neurology will sign off at this time. Please contact with additional questions or concerns.
--- NOTE | 2019-08-03 22:31 | PN ---
PROGRESS NOTE DATE OF SERVICE: 08/03/2019 REASON FOR FOLLOWUP: Urinary tract infection. INTERVAL HISTORY: The patient is currently afebrile. The patient is breathing comfortably. Denies having any chest pain or any cough. No nausea, no vomiting. No abdominal pain or pain to the lower leg. PHYSICAL EXAMINATION: Blood pressure is 123/70 with pulse of 88, temperature 98.5. She is 98% on room air. General description is an elderly female lying in bed in no distress. RESPIRATORY SYSTEM: Unlabored breathing. Clear to auscultation anteriorly. HEART: S1, S2. Regular rate and rhythm. ABDOMEN: Soft. No tenderness. LABS: Hemoglobin 7.1, white count of 4.2, BUN of 30, creatinine 0.92. Urine was positive. Culture so far negative. DIAGNOSTIC IMPRESSION AND PLAN: Patient presented to hospital with mental status changes and fever; concern for urinary tract infection. The patient did have a significantly positive UA. The patient is currently on Zosyn. Blood cultures have been negative so far. Initial x-ray did show a question of bilateral atelectasis with concern for possible pneumonia. X-rays will be repeated. Zosyn will be continued, and monitor clinical course closely. MMODL / IJN: [id number] /
[2019-08-03 22:43] LABS: Appearance,Urine Cloudy (Clear); Bacteria,Urine Rare /hpf; Bilirubin,Urine Negative (Negative); Blood,Urine Large (Negative); Color,Urine Yellow; Glucose,Urine (UA) Trace (Negative); Ketones,Urine Negative (Negative); Leukocyte Esterase,Urine Large (Negative); Nitrite,Urine Negative (Negative); PH, Urine 5.5 (5.0-8.0); Protein,Urine Trace (Negative); RBC,Urine >182 /hpf (0-5); Specific Gravity,Urine 1.026 (1.001-1.035); Squamous Epithelial Cell,Urine <1 /hpf (0-4); Urobilinogen,Urine <2.0 mg/dL (<2.0); WBC,Urine 115 /hpf (0-5)
[2019-08-04 02:05] LABS: Glucose,Whole Blood >600 mg/dL (75-99)
[2019-08-04 02:05] LABS: Glucose,Whole Blood >600 mg/dL (75-99)
[2019-08-04 02:28] LABS: Hemoglobin A1C 5.8 % (4.0-6.0)
[2019-08-04 03:14] LABS: Basophils % (A) 1 %; Eosinophils # (A) 0.2 k/uL (0-0.7); Eosinophils % (A) 6 %; HCT 25.9 % (34.0-46.0); HGB 7.9 gm/dL (11.4-16.0); Hypochromasia Slight; Lymphocytes % (A) 33 %; MCH 28.7 pg (25.0-35.0); MCHC 30.5 g/dL (31.0-37.0); MCV 94.1 fL (80.0-100.0); Mean Platelet Volume 8.6; Monocytes # (A) 0.2 k/uL (0-1.0); Monocytes % (A) 7 %; Neutrophils # (A) 1.5 k/uL (1.3-7.7); Neutrophils % (A) 52 %; Platelet Count 191 k/uL (150-450); RBC 2.75 m/uL (3.80-5.40); RDW 14.8 % (11.5-15.5); WBC 2.9 k/uL (3.8-10.6)
[2019-08-04 03:28] LABS: Calcium 8.2 mg/dL (8.4-10.2); Potassium 3.6 mmol/L (3.5-5.1)
[2019-08-04 04:06] LABS: Glucose,Whole Blood 375 mg/dL (75-99)
[2019-08-04 05:47] VITALS: RESP 18
[2019-08-04] MEDS: LEVOTHYROXINE 75 MCG TAB PO SCH (06:38)
[2019-08-04 07:08] LABS: Glucose,Whole Blood 46 mg/dL (75-99)
[2019-08-04 07:10] LABS: Glucose,Whole Blood 41 mg/dL (75-99)
[2019-08-04 07:40] LABS: Glucose,Whole Blood 72 mg/dL (75-99)
[2019-08-04 08:02] LABS: Glucose,Whole Blood 86 mg/dL (75-99)
[2019-08-04] MEDS: INSULIN ASPART (NovoLOG) 100 UNIT/ML VIAL SQ SCH ×2 (08:54→13:04)
--- NOTE | 2019-08-04 08:54 | XR ---
EXAMINATION TYPE: XR chest 1V DATE OF EXAM: 08/04/2019 COMPARISON: Prior chest x-ray 08/01/2019 HISTORY: Pneumonia TECHNIQUE: Single frontal view of the chest is obtained. FINDINGS: Patient is rotated. Patchy basilar density is again seen. Heart is stable. No evident pneu mothorax or pleural effusion. IMPRESSION: Rotated exam. No significant interval change. Findings may represent atelectasis or scar ring. Follow-up PA and lateral chest x-ray suggested when patient is clinically stable.
[2019-08-04] MEDS ORDERED: INSULIN DETEMIR (LEVEMIR) 100 UNIT/ML SYR SQ SCH (09:00)
[2019-08-04] MEDS: SODIUM FERRIC GLUCONAT-SUCROSE 125 MG in SODIUM CHLORIDE 0.9% 100 ML IVPB SCH (09:08)
[2019-08-04] MEDS: traMADol 50 MG TAB PO SCH (09:08)
[2019-08-04] MEDS: SENNOSIDES 8.6 MG TAB PO SCH (09:09)
[2019-08-04] MEDS: FERROUS SULFATE 325 MG TAB PO SCH (09:10)
[2019-08-04] MEDS: ASPIRIN 81 MG PO SCH (09:10)
[2019-08-04] MEDS: ESCITALOPRAM 20 MG TAB PO SCH (09:10)
[2019-08-04] MEDS: PANTOPRAZOLE 40 MG TABLET PO SCH (09:10)
[2019-08-04] MEDS: DOCUSATE 100 MG CAP PO SCH (09:10)
[2019-08-04] MEDS: MEMANTINE 5 MG TAB PO SCH (09:10)
[2019-08-04] MEDS: SODIUM CHLORIDE 0.9% 1,000 ML IV SCH (09:12)
[2019-08-04] MEDS: INSULIN DETEMIR (LEVEMIR) 100 UNIT/ML SYR SQ SCH (09:58)
[2019-08-04] MEDS: PIPERACILLIN-TAZOBACTAM 3.375 GM in SODIUM CHLORIDE 0.9% 100 ML IVPB SCH (10:19)
--- NOTE | 2019-08-04 11:48 | CDI ---
Documentation Clarification Form Date: 08/04/2019 11:09:32 AM From: Cynthia Navas Admit Date: 08/04/2019 09:04:00 AM Patient Name: Regina Reed Visit Number: [id number] Discharge Date: ATTENTION: The Clinical Documentation Specialists (CDI) and [facility] Coding Staff appreciate your assistance in clarifying documentation. Please respond to the clarification below the line at the bottom and electronically sign. The CDI & [facility] Coding staff will review the response and follow-up if needed. Please note: Queries are made part of the Legal Health Record. If you have any questions, please contact the author of this message via ITS. Dr. Efren Hope 69-year-old white female complaining of fever, chills, altered mental status is documented in the H & P 08/02/2019 History/Risk Factors: Medical history Severe multiple sclerosis, hypothyroidism, chronic neuropathy, DM, history of ESBL in urine, Clinical Indicators: ID Consult 08/02 The patient did have a postive UA with a history of recurrent urinary tract infections, likely representing symptomatic urinary tract infection in this patient currently with no other obvious focus of infection." Neurology PN 08/03 MRI/brain w/ and without contrast with no contrast enhancing lesions, MS features stable. Labs: 08/01 Wbc 7.1; Hgb 9.7; Lymphocytes 0.6; X Ray: Chest 08/01/19 There is patchy bilateral atelectasis and fibrotic change that is new compared to old exam MRI Brain: 08/03/19 Age related atrophic and chronic small vessel ischemic change. No acute process Treatment: 08/01 Rocpehin ivpb x1; 0.9ns 1L bolus followed by 100cc/hr; 08/02 Piperacillin Ivpb; In your professional opinion, please clarify the etiology of the Altered Mental Status, if known. * Metabolic Encephalopathy (specify Type and Underlying Medical Illness) * Other condition (please specify) * Unable to determine (Last Revision: October 2017) MTDD
--- NOTE | 2019-08-04 12:06 | CDI ---
Documentation Clarification Form Date: 08/04/2019 11:44:48 AM From: Cynthia Navas Admit Date: 08/04/2019 09:04:00 AM Patient Name: Regina Reed Visit Number: [id number] Discharge Date: ATTENTION: The Clinical Documentation Specialists (CDI) and [facility] Coding Staff appreciate your assistance in clarifying documentation. Please respond to the clarification below the line at the bottom and electronically sign. The CDI & [facility] Coding staff will review the response and follow-up if needed. Please note: Queries are made part of the Legal Health Record. If you have any questions, please contact the author of this message via ITS. Dr. Efren Hope Urosepsis is being documented in the H & P 08/02/19 and in subsequent progress note History/Risk Factors: 69-year-old female presents to the ED with fever, chills, altered mental status Progressive multiple sclerosis with 3 to 4 extremity weakness. Diagnosed with UTI. H&P 2019 Clinical Indicators: Labs: 08/01 Wbc 7.1; Hgb 9.7; Lymphocytes 0.6; Blood cultures: 08/01 no growth after 24 hours 08/02 UA Leukocyte esterase large, Wbc >182 , UA 08/03 Received Vitals signs on admission 08/01/19 110/55 78 100.4 18 92% room air Treatment: ID Consult 08/02 The patient did have a positive UA with a history of recurrent urinary tract infections, likely representing symptomatic urinary tract infection in this patient currently with no other obvious focus of infection." Neurology PN 08/03 MRI/brain w/ and without contrast with no contrast enhancing lesions, MS features stable. Antibiotics: 08/01 Rocpehin ivpb x; 08/02 Piperacillin Ivpb 08/01 0.9ns 1L bolus followed by 100cchr In your professional opinion, please clarify if these findings signify one of the following conditions, whether the condition is POA, and cause, if known: * UTI with Sepsis POA * UTI POA * Other, please specify * Unable to determine SIRS Criteria (2 or more of the following may indicate SIRS):-Temperature < 96.8F (36C) or > 101.0F (38.3C) -Heart Rate > 90 bpm -Respiratory Rate > 20 breaths/min or PaCO2 < 32 mmHg -White Blood Cell Count > 12,000 or < 4,000 cells/mm3 or > 10% bands -Lactate >2.0 mmol/L (>4.0 is equivalent to septic shock) (Last Revision: October 2017) MTDD
[2019-08-04 12:10] LABS: Glucose,Whole Blood 196 mg/dL (75-99)
[2019-08-04 12:29] VITALS: BP 155/80; PULSE 102; TEMP 98.9
--- NOTE | 2019-08-04 12:33 | P.DS ---
Providers Date of admission: 08/04/19 09:04 Expected date of discharge: 08/04/19 Attending physician: Efren Hope Consults: 08/02/19 09:46 Consult Physician Routine Consulting Provider: Joselito Orozco Consult Reason/Comments: urosepsis Do you want consulting provider notified?: Yes 08/02/19 09:47 Consult Physician Routine Consulting Provider: Marlys Washburn Consult Reason/Comments: MS, progressive Do you want consulting provider notified?: Yes Primary care physician: Efren Tsainmterry [facility] Course: Mental status changes accompanied by fever, sepsis with recurrent acute UTI currently ruled out, final urine culture 08/03 pending with results to be faxed to Dr. Efren Hope. Possible early pneumonia, but no cough. Suspect atelectasis. Dehydration secondary to decreased oral intake. Diabetes mellitus, uncontrolled, both hyperglycemia and hypoglycemia. Malfunctioning glucometer on nursing unit. Profile multiple sclerosis Hypothyroidism This is a 69-year-old female resident of an [facility] presented with mental status changes, acute metabolic encephalopathy, accompanied by fever, with concern for sepsis with recurrent UTI, progressive MS. Chest x-ray reporting atelectasis. Blood cultures negative at 48 hours, urine culture of 08/02 negative. Urine culture of 08/03 pending. Evaluated by infectious disease and neurology. Maintain on IV antibiotics, gentle IV fluid hydration. Neuro workup completed. Cleared by consults for discharge. Patient is being discharged back to [facility] subacute rehab. In a stable condition with guarded prognosis. Lantus dose has been decreased by half, sliding scale further adjusted to start it blood sugars of 150. No sliding scale if no diet intake. Patient will require close monitoring of Accu-Cheks before meals and at bedtime. EXAM: GENERAL: Alert and oriented 2, no acute distress CARDIOVASCULAR: S1, S2 regular.. No murmur RESPIRATION: Breath sounds diminished in the bases. No rhonchi or crackles. ABDOMEN: Soft, nontender . No guarding. no masses palpable. Bowel sounds heard. NERVOUS SYSTEM: Cranial N 2-12 grossly normal. Diffuse weakness-multiple sclerosis in 3-4 extremity weakness The impression and plan of care has been dictated as directed. : I performed a history and examination of this patient, discussed the same with the dictator. I agree with the dictator's note ,documented as a scribe. Any additional findings or plans will be noted. Patient Condition at Discharge: Stable Plan - Discharge Summary New Discharge Prescriptions: New Cefuroxime Axetil [Ceftin] 500 mg PO BID #14 tab Levothyroxine Sodium [Synthroid] 75 mcg PO DAILY@0600 tab traMADol HCL [Ultram ER] 300 mg PO DAILY 3 Days #3 tab INSULIN LISPRO (HumaLOG) [humaLOG] 0 unit SQ ACHS #1 vial Insulin Detemir (Levemir) [Levemir] 20 unit SQ DAILY@0700 syr Diazepam [Valium] 5 mg PO TID PRN #9 tab PRN Reason: Spasms Continue Docusate Sodium [Dulcolax Stool Softener] 200 mg PO DAILY@1200 Ergocalciferol [Vitamin D2 (DRISDOL)] 50,000 unit PO SA Escitalopram [Lexapro] 20 mg PO DAILY@0900 Lisinopril [Prinivil] 20 mg PO HS@2100 Omeprazole [PriLOSEC] 20 mg PO DAILY@0900 Sennosides [Senokot] 17.2 mg PO DAILY@1200 Naloxegol Oxalate [Movantik] 25 mg PO HS@2100 amLODIPine [Norvasc] 5 mg PO DAILY@1200 Aspirin 81 mg PO DAILY chew Dulaglutide [Trulicity] 0.75 mg SQ MO Fenofibrate 160 mg PO HS@2100 Memantine [Namenda] 5 mg PO DAILY@0900 Melatonin 10 mg PO HS@2100 Ferrous Sulfate [Iron (65 MG Elemental)] 325 mg PO DAILY@1200 Amitriptyline HCl [Elavil] 50 mg PO HS@2100 diphenhydrAMINE [Benadryl] 25 mg PO HS@2100 Atorvastatin [Lipitor] 80 mg PO HS@2100 traMADol HCL [Ultram ER] 300 mg PO DAILY@0900 #3 tab Discontinued INSULIN ASPART (NovoLOG) [NovoLOG (formulary)] See Protocol SQ HS Insulin Glargine,Hum.rec.anlog [Basaglar Kwikpen U-100] 20 unit SQ BID@0800,2100 No Action Levothyroxine Sodium [Synthroid] 100 mcg PO HS@2100 Discharge Medication List Docusate Sodium [Dulcolax Stool Softener] 200 mg PO DAILY@1200 08/05/14 [History] Ergocalciferol [Vitamin D2 (DRISDOL)] 50,000 unit PO SA 08/05/14 [History] Escitalopram [Lexapro] 20 mg PO DAILY@89908/05/14 [History] Lisinopril [Prinivil] 20 mg PO HS@209908/05/14 [History] Omeprazole [PriLOSEC] 20 mg PO DAILY@0908/05/14 [History] Sennosides [Senokot] 17.2 mg PO DAILY@119908/05/14 [History] Naloxegol Oxalate [Movantik] 25 mg PO HS@209903/25/16 [History] amLODIPine [Norvasc] 5 mg PO DAILY@119911/14/16 [History] Aspirin 81 mg PO DAILY chew 11/17/16 [Rx] Amitriptyline HCl [Elavil] 50 mg PO HS@209908/02/19 [History] Atorvastatin [Lipitor] 80 mg PO HS@209908/02/19 [History] Dulaglutide [Trulicity] 0.75 mg SQ MO 08/02/19 [History] Fenofibrate 160 mg PO HS@209908/02/19 [History] Ferrous Sulfate [Iron (65 MG Elemental)] 325 mg PO DAILY@119908/02/19 [History] Levothyroxine Sodium [Synthroid] 100 mcg PO HS@209908/02/19 [History] Melatonin 10 mg PO HS@209908/02/19 [History] Memantine [Namenda] 5 mg PO DAILY@0908/02/19 [History] diphenhydrAMINE [Benadryl] 25 mg PO HS@209908/02/19 [History] Cefuroxime Axetil [Ceftin] 500 mg PO BID #14 tab 08/04/19 [Rx] Diazepam [Valium] 5 mg PO TID PRN #9 tab 08/04/19 [Rx] INSULIN LISPRO (HumaLOG) [humaLOG] 0 unit SQ ACHS #1 vial 08/04/19 [Rx] Insulin Detemir (Levemir) [Levemir] 20 unit SQ DAILY@0700 syr 08/04/19 [Rx] Levothyroxine Sodium [Synthroid] 75 mcg PO DAILY@0600 tab 08/04/19 [Rx] traMADol HCL [Ultram ER] 300 mg PO DAILY 3 Days #3 tab 08/04/19 [Rx] traMADol HCL [Ultram ER] 300 mg PO DAILY@0900 #3 tab 08/04/19 [Rx] Follow up Appointment(s)/Referral(s): Efren Hope MD [Primary Care Provider] - 3 Days (office not answering) Activity/Diet/Wound Care/Special Instructions: Chapito MONTERO, TAMARA in 3 days Diet: Consistent carb Activity: As tolerated, patient uses a Chela lift Do not use Humalog insulin sliding scale patient not eating Discharge Disposition: TRANSFER TO SNF/[facility]
[2019-08-04] MEDS: amLODIPine 5 MG TAB PO SCH (13:04)
--- NOTE | 2019-08-04 15:14 | PN ---
PROGRESS NOTE DATE OF SERVICE: 07/18/2019 REASON FOR FOLLOWUP: Fever, possible UTI versus pneumonia. INTERVAL HISTORY: The patient is currently afebrile. Patient has been breathing comfortably. The patient denies having any chest pain, minimal cough. No nausea, no vomiting. No abdominal pain, no diarrhea. PHYSICAL EXAMINATION: Blood pressure 155/80 with a pulse of 90, temperature 98.9, she is 100% on room air. General description is an elderly female, lying in bed in no distress. RESPIRATORY SYSTEM: Unlabored breathing. Decreased breath sounds at the base. No wheeze. HEART: S1, S2. Regular rate and rhythm. ABDOMEN: Soft, no tenderness. LABS: Hemoglobin 7.8, white count of 4.9, BUN of 22, creatinine 0.95. Influenza serology was negative. Repeat urine is positive. DIAGNOSTIC IMPRESSION AND PLAN: Patient admitted to the hospital with a fever with concern for urinary tract infection. The patient did have significant positive culture, subsequently came back negative, all repeat UAs were positive. X-ray, some atelectasis versus pneumonia. She will finish therapy with a short course of oral Ceftin as well as resistant organism has been grown in the culture and continue supportive care. MMODL / IJN: [id number] /
[2019-08-06] MEDS ORDERED: ERGOCALCIFEROL 50,000 UNIT CAP PO SCH (09:00)
--- NOTE | 2019-08-06 12:42 | DS ---
DISCHARGE SUMMARY ADDENDUM TO DISCHARGE SUMMARY: 1. Metabolic encephalopathy. 2. Urinary tract infection with sepsis, POA. MMODL / IJN: [id number] /
[2019-08-08] MEDS ORDERED: NON FORMULARY DRUG (Dulaglutide [Trulicity] 0.75 MG) SQ SCH (09:00)
== END 2019-08-04 15:44 | DRG 871 ==
LOC: EC 20:58 → SUPCPDRO 20:58 → 6NMEDSUR 08-02 02:54 → OBSVTOIN 08-04 09:04
PROVIDERS: ADMIT Family Medicine; ATTEND Family Medicine
DX: A41.9 Sepsis, unspecified organism (principal); G93.41 Metabolic encephalopathy; N39.0 Urinary tract infection, site not specified; J98.11 Atelectasis; E03.9 Hypothyroidism, unspecified; E11.65 Type 2 diabetes mellitus with hyperglycemia; E11.649 Type 2 diabetes mellitus with hypoglycemia without coma; Z79.4 Long term (current) use of insulin; E86.0 Dehydration; G35 Multiple sclerosis; G89.4 Chronic pain syndrome; I10 Essential (primary) hypertension; J44.9 Chronic obstructive pulmonary disease, unspecified; K59.09 Other constipation; F32.9 Major depressive disorder, single episode, unspecified; R41.3 Other amnesia; Z90.49 Acquired absence of other specified parts of digestive tract; Z79.82 Long term (current) use of aspirin; Z79.890 Hormone replacement therapy; Z79.899 Other long term (current) drug therapy; Z86.19 Personal history of other infectious and parasitic diseases; Z86.73 Personal history of transient ischemic attack (TIA), and cerebral infarction without residual deficits; Z87.440 Personal history of urinary (tract) infections; Z87.891 Personal history of nicotine dependence
CPT/HCPCS: 36415; 70553; 71045; 71046; 80048; 80053; 81001; 82947; 83036; 83605; 85025; 85027; 85610; 85730; 87040; 87077; 87086; 87186; 87502; 93005; 96365; 96366; 96368; 99285